=== PATIENT | male | born 1950 | race Caucasian/White ===

== ENCOUNTER 2016-09-16 07:21 | Inpatient (IN) ==
[2016-09-16] MEDS ORDERED: *HR* FentaNYL (PF) 100 MCG/2 ML VIAL IVP ONE ×3 (07:28→07:50)
--- NOTE | 2016-09-16 07:34 | Emergency Department Note ---
Disposition Clinical Impression: Ischemia of right lower extremity, Popliteal aneurysm, Pancreatic mass Disposition: Admitted As Inpatient Condition: Good Extremity Problem HPI - General Chief complaint: ED Extremity Problem,Nontraumatic Stated complaint: DVT right leg Time Seen by Provider: 09/16/16 07:28 Source: patient, EMS Limitations: no limitations Nursing Notes Reviewed: Yes Vital Signs Reviewed: Yes - History of Present Illness HPI Narrative: 65-year-old male history of hypertension, diabetes, hyperlipidemia who presents to the ER with a chief complaint of right lower extremity pain. Patient was transferred from outside facility due to ischemic limb. He reports that one week ago he was cutting wood and a limb fell onto the extremity at that time. There was no significant swelling at that time that he reports last night he started having worsening pain of the right foot. Patient denies a previous history of DVT. He denies a history of hypercoagulable states. He denies being on any anticoagulation. Patient denies chest pain or shortness of breath. No other complaints. Pt Subjective Complaint: extremity pain, cold extremity Onset (ago): hour(s) Consistency: constant Injury Location: right, lower extremity Pain Scale: 10 Quality: sharp Radiation: distal Improves with: nothing Worsens with: range of motion Associated symptoms: Denies: chest pain, shortness of breath, abdominal pain Context: trauma (hit in leg with tree limb one week ago) - Related Data Home Medications Medication Instructions Recorded Confirmed Amlodipine Besylate 10 mg PO DAILY 09/15/16 09/16/16 CloNIDine HCl [Clonidine HCl] 0.2 mg PO BID 09/15/16 09/16/16 FLUoxetine HCl [Fluoxetine HCl] 40 mg PO QAM 09/15/16 09/16/16 GlipiZIDE [Glipizide ER] 10 mg PO BID 09/15/16 09/16/16 Hydrochlorothiazide 50 mg PO DAILY 09/15/16 09/16/16 Labetalol HCl 300 mg PO BID 09/15/16 09/16/16 Lisinopril [Zestril] 20 mg PO DAILY 09/15/16 09/16/16 Metformin HCl [Fortamet] 1,000 mg PO BID 09/15/16 09/16/16 Potassium Chloride [Klor-Con 10] 10 meq PO DAILY 09/15/16 09/16/16 Prazosin HCl [Minipress] 5 mg PO QPM 09/15/16 09/16/16 Spironolactone [Aldactone] 25 mg PO DAILY 09/15/16 09/16/16 Previous Rx's Medication Instructions Recorded Meloxicam [Mobic] 7.5 mg PO DAILY #10 tablet 09/15/16 Tramadol HCl [Ultram] 50 mg PO QID PRN #14 tab 09/15/16 Allergies Allergy/AdvReac Type Severity Reaction Status Date / Time meperidine [From Demerol] Allergy Confusion Verified 09/16/16 07:30 promethazine [From Phenergan] Allergy Confusion Verified 09/16/16 07:30 All systems ED: reviewed and negative except as stated. Cardiovascular: Denies: chest pain Respiratory: Denies: dyspnea Gastrointestinal: Denies: abdominal pain, nausea, vomiting Musculoskeletal: Reports: other (RLE pain, RLE color change) Past Medical History - Past Medical History Attestation: Yes The following information was validated with the patient. Source: patient Medical history: Reports: diabetes, hypertension Surgical history: Reports: non-contributory Psychiatric history: Reports: no psych history - Social History Smoking Status: Current every day smoker Smokeless Tobacco Status: No Alcohol use: Reports: none Drug use: Reports: none Physical Exam - General Limitations: no limitations General appearance: alert, in no apparent distress - Head Head exam: atraumatic, normocephalic, normal inspection - Eye Eye exam: Present: normal appearance, EOMI - ENT ENT exam: normal exam - Neck Neck exam: Present: normal inspection - Chest Chest inspection: Present: normal inspection, symmetric chest wall rise - Respiratory Respiratory exam: Present: normal lung sounds bilaterally - Cardiovascular Cardiovascular exam: Present: regular rate, normal rhythm, normal heart sounds - Abdominal Exam Abdominal exam: Present: soft, Non-Tender. Absent: tenderness - Extremities Exam Extremities exam: Present: normal inspection, full ROM - Expanded Upper Extremity Exam Shoulder exam: Present: normal inspection, full ROM Arm exam: Present: normal inspection, full ROM Elbow exam: Present: normal inspection, full ROM Forearm/Wrist exam: Present: normal inspection, full ROM Hand exam: Present: normal inspection, full ROM - Expanded Lower Extremity Exam Hip/Pelvis exam: Present: normal inspection, full ROM Upper leg exam: Present: normal inspection, full ROM, other (Patient does have an intact femoral pulse.) Knee exam: Present: normal inspection, full ROM Lower leg exam: Present: normal inspection, full ROM Ankle exam: Present: normal inspection. Absent: full ROM (patient has diminished dorsiflexion and plantar flexion of the RLE) Foot/toe exam: Present: normal inspection, other (decreased sensation to the medial aspect of the right foot). Absent: full ROM, erythema Neurovascular/Tendon exam: Present: pulse deficit (I am unable to physically palpate a posterior tibial or dorsalis pedis pulse or evaluated with bedside Doppler.). Absent: motor deficit, sensory deficit - Neurological Exam Neurological exam: Present: alert - Psychiatric Psychiatric exam: Present: normal affect, normal mood - Skin Skin exam: Present: warm, dry, intact, other (The right lower extremity is pale from the knee distal.) Course Course Narrative: Patient seen and examined. Vital signs reviewed. He presents with a heparin drip currently infusing. He has a cold extremity from the right knee distal. He is able to minimally dorsiflex and plantarflex the right ankle with minimal toe involvement. I am unable to physically palpate a dorsalis pedis or posterior tibial pulse. Vascular surgery has been paged as well as cardio for an FRANKLIN. Bedside Doppler unable to obtain PT or DP pulses. - Reevaluation(s) Reevaluation #1: Discussed case with vascular surgery. They request ABIs and to be updated once that is back. Reevaluation #2: Received results of ABIs. They were able to get a dorsalis pedis however the posterior tibial was 0. Contacting vascular surgery for further management. Reevaluation #3: Vascular surgery wanting CTA of the aorta with runoff. Ordered as well as normal saline bolus. - Consultations Consultation #1: I discussed this case with the on-call vascular surgeon Dr. Sidhu. He requests to get ABIs and then a CTA of the aorta with runoff. I called him back and discussed the results which showed a pancreatic mass as well as a right popliteal aneurysm. He is going to take the patient to surgery once he has finished up causing his current case. Patient remains on heparin drip. Vital Signs Temperature 98.0 F 09/16/16 07:23 Pulse Rate 66 09/16/16 07:23 Respiratory Rate 18 09/16/16 07:23 Blood Pressure 187/94 09/16/16 07:23 O2 Sat by Pulse Oximetry 93 09/16/16 07:23 Temperature 98.0 F 09/16/16 07:23 Pulse Rate 75 09/16/16 13:27 Respiratory Rate 18 09/16/16 13:27 Blood Pressure 185/91 09/16/16 13:27 O2 Sat by Pulse Oximetry 96 09/16/16 13:27 Oxygen Delivery Oxygen Delivery Nasal Cannula Extremity Problem, Nontraumati - MDM Narrative Medical decision making narrative: 65-year-old male presents to the ER due to right lower extremity weakness, numbness and pain. Patient was found to have absent pulses here. FRANKLIN shows a posterior tibial deficit. Patient was placed on heparin drip prior to arrival. His CT of the aorta shows a right popliteal aneurysm with likely occlusion distal. There is also concern for a pancreatic mass which will require further investigation. Vascular surgery was consulted in the ER who will take the patient to the OR. Requests admission to the hospitalist service. Patient accepted for admission. - Lab Data Lab results reviewed: Yes I reviewed the patient's lab results. Result diagrams: 09/16/16 08:04 Lab Results 09/16/16 09/16/16 09/16/16 Range/Units 07:53 08:04 08:04 Sodium 132 L (136-145) mEq/L Potassium 4.4 (3.5-4.5) mEq/L Chloride 100 (98-109) mEq/L Carbon Dioxide 19 (19-29) mEq/L BUN 24 (8-26) mg/dL Creatinine 1.02 (0.72-1.25) mg/dL Est GFR ( Amer) > 60 (> 60) Est GFR (Non-Af Amer) > 60 (> 60) BUN/Creatinine Ratio 24 (6-26) Glucose 184 H (70-99) mg/dL POC Glucose 174 H (58-89) Calculated Osmolality 283 (280-300) Calcium 10.1 (8.6-10.8) mg/dL Blood Type A POSITIVE Antibody Screen NEGATIVE - Radiology Data Radiology results reviewed: Yes I reviewed the patient's radiology results. Aorta w/Runoff CTA 09/16/16 08:43 IMPRESSION: Pancreatic head mass measuring 3.5 x 3.5 cm in diameter suspicious for neoplasm. MRI the pancreas is recommended for further evaluation. 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 Suboptimal phase of contrast enhancement distal to the aneurysm and thrombosis or intraluminal thrombus in the distal popliteal artery or runoff arteries cannot be excluded. Conventional arteriography is recommended for further evaluation. D/ / Aime Acuña MD / Aime Acuña MD Interpreting Provider: Aime Acuña MD - EKG Data EKG attestation: Yes I reviewed and interpreted this EKG. EKG results narrative: EKG demonstrates normal sinus rhythm. Normal axis. DE interval 174 QRS duration 105 QTc 437 T wave flattening in lead 3 and aVL unchanged from previous. No ST elevations or depressions. No acute ischemic findings. No significant changes from previous EKG dated 06/26/13. S.Gm.Herlinda - Nessa Situation: Demographics, MOA Background: Presenting Complaint, Relevant PMH, Meds, & Allergies Assessment: Vital Signs, Course and respsone to treatment, Exam Concerns, Patient/Family Expectation, Pertinant Lab Results, Outstanding Labs Recommendation: Barrier(s) to disposition, Recommendation based on pending studies, treatments, or consults SLarisa Report Given to: Dr. Charla Szymanski Repor Time: 13:33 Attestation Statement - Attestation Attestation: I examined this patient and my medical decision-making was reviewed with the Resident Physician. I agree with the documented findings, disposition and treatment plan as described except to the extent set forth below. Ischemic limb d/t popliteal artery aneurysm and occlusion. Incidental finding of pancreatic mass. Hospitalist here to admit pt per vascular surgery request, initially requested that I order IV Hydralazine, after discussion we agreed to give him a dose of Clonidine since he takes this medication as an outpatient and missed this morning's dose. Pt has no symptoms of a hypertensive emergency.
[2016-09-16 08:26] LABS: BUN/Creatinine Ratio 24 (6-26); Blood Urea Nitrogen 24 mg/dL (8-26); Calcium 10.1 mg/dL (8.6-10.8); Carbon Dioxide 19 mEq/L (19-29); Chloride 100 mEq/L (98-109); Glucose 184 mg/dL (70-99); Osmolality,Calculated 283 (280-300); Potassium 4.4 mEq/L (3.5-4.5); Sodium 132 mEq/L (136-145); eGFR For African Americans > 60 (> 60); eGFR For Non-African Americans > 60 (> 60)
[2016-09-16] MEDS ORDERED: 0.9 % Sodium Chloride 500 ML IVC ONE (08:55)
[2016-09-16] MEDS ORDERED: *HR* HYDROmorphone 2 MG/ML SYRINGE IVP ONE (09:17)
[2016-09-16] MEDS ORDERED: *HR* HYDROmorphone (PF) 1 MG/ML SYRINGE IVP ONE ×3 (10:40→13:00)
--- NOTE | 2016-09-16 10:40 | Electrocardiograph Report ---
[place] [employer] Test Date: 2016-09-16 Pat Name: [facility] Department: [facility] Room: Gender: M Political Science Faculty Member: MSC : 1950 Requested By: Stanislaw Packer Order Number: [id number] Reading MD: Tano Peñaloza MD Measurements Intervals [place] Rate: 68 P: 80 TX: 174 QRS: 20 QRSD: 105 T: 42 QT: 419 QTc: 437 Interpretive Statements SINUS RHYTHM wnl Electronically Signed On 09-16-2016 10:38:26 EDT by Tano Peñaloza MD
[2016-09-16] MEDS ORDERED: *HR* Midazolam HCl 2 MG/2 ML VIAL ONE (13:01)
[2016-09-16] MEDS ORDERED: *HR* FentaNYL (PF) 100 MCG/2 ML VIAL ONE ×2 (13:01→15:14)
[2016-09-16] MEDS ORDERED: *HR* Remifentanil 2 MG VIAL IVP ONE ×2 (13:03→18:29)
[2016-09-16] MEDS ORDERED: *HR* Phenylephrine 10 MG/ML VIAL ONE (13:06)
[2016-09-16] MEDS ORDERED: Lidocaine -MPF 4% 5 ML AMPUL ONE (13:10)
[2016-09-16] MEDS ORDERED: Water for inj. (sterile) 10 ML IV ONE ×2 (13:10→13:16)
[2016-09-16] MEDS ORDERED: *HR* Heparin 5,000 UNIT/ML VIAL ONE (13:16)
[2016-09-16] MEDS ORDERED: EPHEDrine 50 MG/ML VIAL ONE (13:17)
[2016-09-16] MEDS ORDERED: Heparin 1,000 UNITS/500 mL NS 0 ML ONE (13:52)
[2016-09-16] MEDS ORDERED: cloNIDine HCl 0.1 MG TABLET PO ONE (14:02)
[2016-09-16] MEDS ORDERED: Heparin 1,000 UNITS/500 mL NS 1,000 ML ONE (14:03)
--- NOTE | 2016-09-16 14:22 | Vascular/Endovasc Consult Note ---
Date of Encounter: 09/16/16 Time of Encounter: 14:19 Assessment and Plan (1) Hypertension Current Visit: Yes Status: Chronic The patient sees Dr. Fishman for hypertension control. Qualifiers: Hypertension type: essential hypertension Qualified Code(s): I10 - Essential (primary) hypertension (2) Ischemia of right lower extremity Current Visit: Yes Status: Acute Limb threatening ischemia of right lower extremity with thrombosed right popliteal artery aneurysm and suspected thromboembolic events. 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 The patient and his family were informed of this grave diagnosis. He was explained that the prognosis is very poor and that limb loss is a distinct possibility. It is imperative to proceed with surgery as soon as possible. Patient is on a heparin drip which will be continued to the operating room. - History of Present Illness Consult date: 09/16/16 Consult reason: Right leg ischemia Chief complaint: Right leg pain History of present illness: Mr. Gonsalves is a 65 year old male Seen in the emergency room and a #1 for right lower extremity symptoms. Patient states that he had some type of a tree branch striking his right leg about a week ago he's had some discomfort since then. However, last evening he had a dramatic increase in the pain. He was seen at the [facility] and an x-ray was taken and the patient was sent home. The pain did not improve and he returned to the [facility] and then was referred to [facility]. He was transferred here early this morning. No palpable pulses were identified at the right ankle and the foot was cool to cold and discolored. No Doppler signals are identified on hand- held Doppler and vascular surgery was consulted. This eventually led to a CT angiogram which was positive for a 5 cm right popliteal artery aneurysm that appears thrombosed. Distal run off and the tibial vessels could not be identified. The patient has ectasia but no rosalina aneurysm in the left popliteal artery. There is no finding of an abdominal aortic aneurysm. Of note the patient has multiple risk factors including diabetes, hypertension that is poorly controlled, hyperlipidemia, and tobacco abuse. The patient denies any previous right lower extremity symptoms and denies any claudication in the recent past. He states his father of an aneurysm when he was 5 years of age but he does not know any other medical details and does not know where the aneurysm was located. Past Med Surg Social Fam HX - Past Medical History Medical history: diabetes, hypertension Psychiatric history: no psych history - Past Surgical History Surgical History: non-contributory - Social History Smoking Status: Current every day smoker Smokeless Tobacco Status: No Alcohol use: none Drug use: none Medications and Allergies Amlodipine Besylate 10 mg PO DAILY 09/15/16 [History] CloNIDine HCl [Clonidine HCl] 0.2 mg PO BID 09/15/16 [History] FLUoxetine HCl [Fluoxetine HCl] 40 mg PO QAM 09/15/16 [History] GlipiZIDE [Glipizide ER] 10 mg PO BID 09/15/16 [History] Hydrochlorothiazide 50 mg PO DAILY 09/15/16 [History] Labetalol HCl 300 mg PO BID 09/15/16 [History] Lisinopril [Zestril] 20 mg PO DAILY 09/15/16 [History] Meloxicam [Mobic] 7.5 mg PO DAILY #10 tablet 09/15/16 [Rx] Metformin HCl [Fortamet] 1,000 mg PO BID 09/15/16 [History] Potassium Chloride [Klor-Con 10] 10 meq PO DAILY 09/15/16 [History] Prazosin HCl [Minipress] 5 mg PO QPM 09/15/16 [History] Spironolactone [Aldactone] 25 mg PO DAILY 09/15/16 [History] Tramadol HCl [Ultram] 50 mg PO QID PRN #14 tab 09/15/16 [Rx] Allergies meperidine [From Demerol] Allergy (Verified 09/16/16 07:30) Confusion promethazine [From Phenergan] Allergy (Verified 09/16/16 07:30) Confusion All Systems Review: A 10-system review of systems was performed and is negative for pertinent findings except as documented above in the HPI. Exam General: Present: Conversant, No Apparent Distress HEENT: Present: Atraumatic, Normocephaly Neck: Absent: JVD, Midline deformity, Tracheal deviation Cardiac: Present: Reg Rate and Rhythm, Normal S1 and S2. Absent: No Murmur Lungs: Present: Normal Breath Sounds Neuro: Present: Alert and responsive, Cranial nerves grossly intact, Other (The patient has decreased sensation and decreased motion of the right toes and foot and ankle.) Abdomen: Present: Soft, Non-tender Vascular: Present: Pulse, absent (The patient has a hyperdynamic right popliteal pulse that is tender to manipulation. There is also mottling extends around the knee and the right calf and right foot are cyanotic with a waxy purplish discoloration. The right foot is cold to the touch. The left foot is warm and pink.), Pulse, normal (Left lower extremity is normal.) Skin: Present: No rashes noted on visualized skin Consult Discharge Plan - Plan Referrals: Yandy Wilson, BE[employer]ER [Primary Care Provider] -
[2016-09-16] MEDS ORDERED: Albuterol 2.5 MG/3 ML NEBULIZER ONE (14:44)
[2016-09-16] MEDS ORDERED: *HR* Heparin 5,000 UNIT/ML VIAL IVP PRN ×2 (14:46)
--- NOTE | 2016-09-16 14:46 | Anesthesia Evaluation PreOp ---
Date of Encounter: 09/16/16 Time of Encounter: 14:45 - Past History Planned Operation: Thrombectomy/ Repair Pop Aneurysm/Fem-Pop Cardiac History: HTN, Hyperlipidemia Pulmonary History: Smoker, COPD CABLE WIRER History: Denies Any Significant HX Other Medical History: Diabetes Type II Anesthesia History: No Prior Anesthetic Complications Alcohol Use: none Drug use: none Medications and Allergies Amlodipine Besylate 10 mg PO DAILY 09/15/16 [History] CloNIDine HCl [Clonidine HCl] 0.2 mg PO BID 09/15/16 [History] FLUoxetine HCl [Fluoxetine HCl] 40 mg PO QAM 09/15/16 [History] GlipiZIDE [Glipizide ER] 10 mg PO BID 09/15/16 [History] Hydrochlorothiazide 50 mg PO DAILY 09/15/16 [History] Labetalol HCl 300 mg PO BID 09/15/16 [History] Lisinopril [Zestril] 20 mg PO DAILY 09/15/16 [History] Meloxicam [Mobic] 7.5 mg PO DAILY #10 tablet 09/15/16 [Rx] Metformin HCl [Fortamet] 1,000 mg PO BID 09/15/16 [History] Potassium Chloride [Klor-Con 10] 10 meq PO DAILY 09/15/16 [History] Prazosin HCl [Minipress] 5 mg PO QPM 09/15/16 [History] Spironolactone [Aldactone] 25 mg PO DAILY 09/15/16 [History] Tramadol HCl [Ultram] 50 mg PO QID PRN #14 tab 09/15/16 [Rx] Allergies meperidine [From Demerol] Allergy (Verified 09/16/16 07:30) Confusion promethazine [From Phenergan] Allergy (Verified 09/16/16 07:30) Confusion - Meds/Allergy Pre-op Review Medications Reviewed: Yes Allergies Reviewed: Yes Beta Blockers on Current Med List: No Anesthesia Results - Labs 09/16/16 08:04 Laboratory Tests 09/16/16 09/16/16 09/16/16 06:23 06:23 07:53 Hgb 14.5 Hct 42.3 Plt Count 298 PT 11.6 INR 1.1 APTT 35.1 Sodium Potassium BUN Creatinine POC Glucose 174 H 09/16/16 08:04 Hgb Hct Plt Count PT INR APTT Sodium 132 L Potassium 4.4 BUN 24 Creatinine 1.02 POC Glucose - Imaging EKG: report reviewed (NSR) Anesthesia Exam O2 Sat Height 1.85 m Weight 115.666 kg O2 Sat by Pulse Oximetry 96 O2 Sat by Pulse Oximetry 96 O2 Sat by Pulse Oximetry 96 O2 Sat by Pulse Oximetry 96 O2 Sat by Pulse Oximetry 93 O2 Sat by Pulse Oximetry 95 O2 Sat by Pulse Oximetry 95 O2 Sat by Pulse Oximetry 93 Vital Signs Temp Pulse Resp BP Pulse Ox 98.0 F 66 18 187/94 93 09/16/16 07:23 09/16/16 07:23 09/16/16 07:23 09/16/16 07:23 09/16/16 07:23 Height: 6'1 Weight: 255 lbs NPO (# of Hours): MN Pain Scale: 0 - HEENT Pupil (Motor): Pupils equal, EOMI Mallampati: III Teeth: Edentulous Oral Opening: Greater than 3 - CABLE WIRER LOC: Oriented CABLE WIRER Motor: Normal RUE, Normal LUE, Normal RLE, Normal LLE, Normal Face CABLE WIRER Sensory: Normal: RUE, LUE, LLE, Face, Deficit: RLE (Ischemic) - Cardiac Rhythm: Regular Murmur: None JVD: No Carotid Bruit: No - Pulmonary Breath Sounds: bilateral Clear Respiratory Effort: Symmetrical Anesthesia Assess/Plan ASA Score: 3, E Modified Mendy Scale for Level of Consciousness: Cooperative, oriented, and tranquil Anesthetic Plan: General Monitoring Plan: Standard Monitors, A-Line Recovery Plan: PACU (Discussed GA, Ethel, agrees to proceed)
[2016-09-16] MEDS ORDERED: D5% in Water 1,000 ML IVC PRN ×2 (14:47→22:05)
[2016-09-16] MEDS ORDERED: Dextrose Gel 15 GM PO PRN ×4 (14:47→22:05)
[2016-09-16] MEDS ORDERED: *HR* Dextrose 50 % in Water (Syg) 50 ML SYRINGE IVP PRN ×2 (14:47→22:05)
[2016-09-16] MEDS ORDERED: Ondansetron 4 MG/2 ML VIAL IVP PRN (14:49)
[2016-09-16] MEDS ORDERED: *HR* HYDROmorphone (PF) 1 MG/ML SYRINGE IVP PRN ×2 (14:49→16:33)
[2016-09-16] MEDS ORDERED: Naloxone 0.4 MG/ML INJ IVP PRN ×3 (14:49→21:25)
[2016-09-16] MEDS ORDERED: *HR* HYDROcodone/Acet 5/325 mg TABLET PO PRN (14:49)
[2016-09-16] MEDS ORDERED: Acetaminophen 325 MG TABLET PO PRN (14:49)
[2016-09-16] MEDS ORDERED: Heparin 25,000 UNIT/500 ML D5W 25,000 UNIT/500 ML MLS IVC SCH ×2 (15:00→21:25)
[2016-09-16] MEDS: Albuterol 2.5 MG/3 ML NEBULIZER IH ONE ×2 (15:12→22:36)
--- NOTE | 2016-09-16 15:23 | Arterial Study Report ---
LE Arterial Physiologic Study Patient Name:Emilio Gonsalves Order Number:[id number] Procedure Date:09/16/2016 Date:1950ge:65 yrs Gender:Male Lt BP:200 / mmHg Rt.BP:200 / mmHgHeart Rate: Location:[facility] ED Room #: [employer] Music Teacher:Apolinar Blackwell RDCS Referring MD:Stanislaw Packer DO mining professionals:Yandy Wilson, WE[employer] MARKET[employer] INTERN Reading MD:Martin Sidhu MD , FACS Primary Indications:Right leg pain Risk Factors Yes/No Hypertension Yes Diabetes Yes Smoking Current Yes Impressions: 1) Right lower extremity waveform demonstrates moderately diminished hemodynamics. 2) Right Ankle Brachial Index demonstrates severely occlusive disease. 1) Left lower extremity waveform demonstrates mildly diminished hemodynamics. 2) Left Ankle Brachial Index demonstrates mildly occlusive disease. Recommendations: After imaging the patient returned to their room. Critical findings reported to ER by phone by Apolinar Blackwell RDCS. Findings LE Arterial Physiologic Exam: Segmental Pressures: Right: The right dorsalis pedis pressure is 151 mmHg with an index of 0.76. The posterior tibial pressure on the right was not obtained secondary to no audible Doppler signal. Left: The left dorsalis pedis pressure is 194 mmHg with an index of 0.97. The posterior tibial pressure on the left may be artificially elevated due to vessel calcification. FRANKLIN: Right: The Posterior Tibial FRANKLIN on the right was not obtained secondary to no audible Doppler signal. Left: The Posterior Tibial FRANKLIN on the left may be artificially elevated due to vessel calcification. PVR: Right: The PVR waveforms are moderately diminished in the right ankle. Left: The PVR waveforms are normal in the left ankle. Prior Study: No prior study available for comparison. High BP. No pulse found on right PT with a thumping pulse of the DP. So I did a quick image and noticed what appears to be a right POP A aneurysm with a distal occlusion. Segmental Pressures Side Location Pressure Index Result Right Posterior Tibial 0 Severely Diminished Right Dorsalis Pedis 151 0.76 Mildly Diminished Left Posterior Tibial noncompressible Left Dorsalis Pedis 194 0.97 Normal Ankle Brachial Index Right Systolic Diastolic FRANKLIN Brachial 200 0.76 Dorsalis Pedis 151 0.76 Posterior Tibial 151 0.76 Left Systolic Diastolic FRANKLIN Brachial 200 0.97 Dorsalis Pedis 194 0.97 Updated by Martin Sidhu MD, FACS on 09/16/2016 3:16:46 PM with Status of Final Martin Sidhu MD electronically signed on 09/16/2016 3:17:47 PM with status of Final
--- NOTE | 2016-09-16 15:24 | Internal Med History&Physical ---
<Gato Dunham T - Last Filed: 09/16/16 17:30> Date of Encounter: 09/16/16 Internal Medicine - H&P: HPI History of present illness: Mr. Gonsalves is a 65 year old male Internal Medicine - H&P: Meds Amlodipine Besylate 10 mg PO DAILY 09/15/16 [History] CloNIDine HCl [Clonidine HCl] 0.2 mg PO BID 09/15/16 [History] FLUoxetine HCl [Fluoxetine HCl] 40 mg PO QAM 09/15/16 [History] Hydrochlorothiazide 50 mg PO DAILY 09/15/16 [History] Labetalol HCl 300 mg PO BID 09/15/16 [History] Lisinopril [Zestril] 20 mg PO DAILY 09/15/16 [History] Prazosin HCl [Minipress] 5 mg PO HS 09/15/16 [History] GlipiZIDE [Glipizide] 10 mg PO BID 09/16/16 [History] Metformin HCl [Glucophage] 1,000 mg PO BID 09/16/16 [History] Spironolactone [Aldactone] 50 mg PO DAILY 09/16/16 [History] Allergies meperidine [From Demerol] Allergy (Verified 09/16/16 07:30) Confusion promethazine [From Phenergan] Allergy (Verified 09/16/16 07:30) Confusion All Systems PM: A 10-system review of systems was performed and is negative for pertinent findings except as documented above in the HPI. - Constitutional Vitals: Temp Pulse Resp BP Pulse Ox 98.0 F 75 18 183/90 96 09/16/16 07:23 09/16/16 13:27 09/16/16 14:36 09/16/16 14:36 09/16/16 13:27 Internal Med - H&P Results - Labs CBC & Chem 7: 09/16/16 08:04 - Attending Attestation I have independently interviewed and examined this patient. I agree with the resident/practitioner's documentation with exemptions as stated below. The plan of care has been discussed with the team, patient and family members. 65 Y/O M with PMH of hypertension and, hyperlipidemia, tobacco abuse with 40 pack years, diabetes mellitus, obesity. Patient presents with pain, swelling, numbness and tingling sensation, and discontinuation of his right lower extremity. Symptoms date back to a week ago patient attributes to trauma while cutting a log of wood. He states his FS have ranged from 130-140 and his BP has been well controlled recently. He also reports claudication of both lower extremities Physical exam is remarkable for anxious looking, middle aged man, not in painful distress, BP elevated to SBP >200, DBP >110. He is flushed on his torso. HS S1, S2, chest is clear, abdomen is obese but benign. Left lower extremity is pink, right lower extremity is cyanotic, cold and mottled with decreased sensation and absent dorsalis pedis and popliteal pulses. He also has multiple abrasions on his lower extremities bilaterally. Labs and Imaging reviewed: No fracture on Tibial X-ray, bibasilar atelectasis, pancreatic head mass, R popliteal artery aneurysm, cannot r/o distal thrombus. CBC with mild anemia, PLT WNL, Lactate 2.4, pseudo hyponatremia, hyperglycemia , coag panel WNL Assessment/Plan Acute limb ischemia in patient with multiple risk factors including tobacco abuse, HLD, DM, HTN, and suspected pancreatic CA. Continue anticoagulation with heparin drip, vascular surgery is on board for limb conserving surgery ARSALAN, start on ASA and Plavix, patient is high risk . Pancreatic mass: patient with family hx of pancreatic CA in mother, and tobacco abuse. Abdomen MRi after surgery, consult GI, may need oncology consult and may need lovenox for life upon discharge Uncontrolled HTN from ongoing pain and not started on home meds-restart home meds DM-Check A1C, FS q4-a6h, sliding scale insulin Tobacco abuse-NRT Rest of details as in residents documentation <Kathrin Osullivan - Last Filed: 09/17/16 01:08> Date of Encounter: 09/17/16 Time of Encounter: 15:22 Assessment and Plan (1) Ischemia of right lower extremity Current visit: Yes Status: Acute Patient presents with ischemic right LE. Unable to locate pulses with doppler, limb is cool and cyanotic. Patient transferred from [facility] on heparin drip. ABIs: posterior tibial pulse unable to be obtained via doppler. CTA aorta with runoff shows Right popliteal aneurysm with likely distal occlusion. Lactate elevated at 2.4 Vascular surgery was consulted by ED, evaluated patient and discussed need for urgent surgical intervention. Patient requests to be DNR/DNI. It was discussed that for surgical intervention he must be full code and that his code status can be addressed again in the morning and changed per his wishes. Plan: -Surgery per vascular -Patient started on ASA 325mg daily and plavix 75mg -Will continue hep gtt for now, patient may need indefinite treatment on lovenox as outpatient -Will repeat lactate, check lipids -Discussion of code status post op (2) Popliteal aneurysm Current visit: Yes Status: Acute Popliteal anurysm noted on the right. Patient also has renal cyst on left kidney. Patient's father of ruptured brain aneurysm. Patient is at high risk for possible aneurysmal rupture since he is now anticoagulated and hypertensive as we do not know if he has an aneurysm in his brain as well. Will need to control his BP and continue to monitor symptoms closely. (3) Hypertension Current visit: Yes Status: Chronic Patient sees Dr. Fishman for management of his hypertension. Patient has had fairly high BP readings since arrival to the ED.With potential for further aneurysms that have the possibility of rupturing with anticoagulation therapy in conjunction with high BP. Plan: -Continue home BP meds Qualifiers: Hypertension type: essential hypertension Qualified Code(s): I10 - Essential (primary) hypertension (4) Pancreatic mass Current visit: Yes Status: Acute 3.5x3.5cm mass found in head of pancreas incidentally on a CT aorta. Patient has smoked about 1 PPD for 40 years. Denies ETOH or elicit drug use. Patient is older male with DM, mother had pancreatic cancer. Mass must be evaluated further so treatment can be determined. If MRI abdomen comes back positive, will need to do further eval for potential mets vs primary distal tumor cancer eval. Patient may need hem/onc eval Plan: -Keep NPO after midnight except for meds. -MRI abdomen w/wo contrast in AM. Per radiology MRI has better view of pancreas when patient is NPO -CA-19, CEA, amylase, lipase, cmp, cbc, coags in AM (5) Diabetes mellitus, type 2 Current visit: Yes Status: Acute Plan: -low dose SS insulin -Get HgbA1C and reassess insulin needs, may need to add long acting insulin, but patient is only on metformin and glimipizide at home. Qualifiers: Diabetes mellitus complication status: with circulatory complication Diabetes mellitus complication detail: with other circulatory complications Diabetes mellitus correction insulin use: without correction use Qualified Code( s): E11.59 - Type 2 diabetes mellitus with other circulatory complications (6) Tobacco abuse Current visit: Yes Status: Chronic Patient has history of smoking 1PPD x40 years Plan: -smoking cessation counseling -nicotine patch prn (7) DVT prophylaxis Current visit: Yes Status: Acute Patient on heparin drip Internal Medicine - H&P: HPI Chief complaint: Right lower extremity pain Admitted From: Emergency Dept Plans for Post Hospital Care: Home History of present illness: Mr. Gonsalves is a 65 year old male with a PMH significant for DM, HTN who presented to the ED this morning complaining of right lower extremity pain. The patient was transferred from outside facility due to an ischemic limb. He reports that one week ago he was cutting wood and a limb fell onto his righ lower extremity. He notes an abrasion to the right keith and dorsal aspect of the foot, but denies any swelling. Last night he began having pain in the right foot ankle and was having difficulty dorsiflexing and inverting the foot. He presented to urgent care and was evaluated. He had an XR that was negative for acute fracture and a relatively benign exam according to documentation. The patient was diagnosed with an ankle sprain and discharged home. He woke up around 0500 today with worse pain in the right LE, along with progressively worsening weakness or the extremity with increasing coldness and color change to a blue color. He notes that he is having trouble standing and walking. He states that his leg feels cold, with a numbness and burning sensation on the plantar aspect of his right foot. He denies a previous history of DVT, PE, CVA, CA, recent long car rides or airplane travel, recently being sedentary for prolonged time periods and recent chemotherapy. He denies a history of hypercoagulable states. He denies being on any anticoagulation. He has had worsening weakness and insomnia lately. He has smoked 1PPD x40 years. He notes that he lost his about 4 months ago and is still grieving. He denies F/C, ESPINOSA, syncope, dizziness, palpitations, cp, sob, abdominal pain, n/v/d, constipation, dysuria or back pain. Past Med Surg Social Fam HX - Past Medical History Medical history: diabetes, hypertension Psychiatric history: no psych history - Past Surgical History Surgical History: non-contributory, cataract (right) - Social History Smoking Status: Current every day smoker Packs per day: 1PPD x40 years Smokeless Tobacco Status: No Alcohol use: none Drug use: none Activity Level: Independent ambulation Recent Out of Country Travel Within the Last 8 Weeks: No Exposure or Possible Exposure to Illness During Travel: No - Family History Father Race: Family Member Ethnicity: Non- Living Status: Age at : 58 Cause of : Brain anurysm Mother Race: Family Member Ethnicity: Non- Living Status: Age at : 63 Cause of : Pancreatic Cancer Hx Family Cancer: Yes (Pancreatic) Brother Race: Family Member Ethnicity: Non- Living Status: Still Living Hx Family Endocrine Disorder: Yes (DM) All Systems PM: A 10-system review of systems was performed and is negative for pertinent findings except as documented above in the HPI. - Constitutional Constitutional: fatigue, weakness (b/l legs), no anorexia, no chills, no weight loss - Cardiovascular Cardiovascular ROS IM: no chest pain, no dyspnea, no edema, no lightheadedness, no palpitations, no syncope - Respiratory Respiratory: no cough, no dyspnea, no wheezing - Gastrointestinal Gastrointestinal: no abdominal pain, no constipation, no diarrhea, no nausea, no vomiting - Genitourinary Genitourinary ROS male: no dysuria - Musculoskeletal Musculoskeletal ROS IM: limited range of motion, muscle weakness (b/l legs), tingling (right plantar surface) - Integumentary Integumentary IM: other (cold, blue limb), no erythema - Neurological Neurological ROS: abnormal gait, burning sensations, no confusion, no dizziness , no headache(s), no tremor(s) - Psychiatric Psychiatric: abnormal sleep pattern (insomnia), depression - Constitutional Vitals: Temp Pulse Resp BP Pulse Ox 98.0 F 75 18 183/90 96 09/16/16 07:23 09/16/16 13:27 09/16/16 14:36 09/16/16 14:36 09/16/16 13:27 General appearance: Present: cooperative, A&O X 3, no acute distress, obese, answers questions appropriately - Head Head exam: Present: atraumatic, normocephalic - Eye Eye exam: Present: EOMI, normal appearance, PERRL, conjuntiva pink, sclera anicteric Pupils: Present: PERRL - ENT ENT exam: Present: mucous membranes moist, normal external ear exam, TM's normal bilaterally Additional comments: upper dentures - Neck Neck exam general surgery: Present: supple, trachea midline. Absent: lymphadenopathy - Respiratory Respiratory exam: Present: CTAB. Absent: accessory muscle use, rales, respiratory distress, rhonchi, wheezes - Cardiovascular Cardiovascular exam: Present: RRR, +S1, +S2. Absent: diastolic murmur, gallop, rubs, systolic murmur - GI/Abdominal GI/Abdominal exam: Present: normal bowel sounds, soft, no peritoneal signs. Absent: distended, tenderness - Extremities Exam Extremities exam: Present: calf tenderness (right calf), cyanotic (right, below ankle), tenderness. Absent: full ROM, joint swelling, normal capillary refill, pedal edema, radial pulses palpable and symetrical - Expanded Lower Extremities Exam Lower Leg exam: Present: abrasion (right keith), tenderness Foot/Toe exam: Present: abrasion (dorsal aspect of right foot). Absent: full ROM Neuro vascular tendon exam: Present: abnormal cap refill, decreased fine/light touch (right), extremity cold to touch, motor deficit, pallor (right), pulse deficit (right), sensory deficit (right) - Back Exam Back exam: Present: normal inspection. Absent: CVA tenderness (L), CVA tenderness (R), paraspinal tenderness - Neurological Exam Neurological exam: Present: alert, motor sensory deficit (decreased motor/ sensory in right lower leg), oriented X3. Absent: facial droop, speech deficit - Expanded Neurological Exam Sensory exam: lower extremity light touch: Abnormal Right Neuro motor strength exam: LLE: 5, RLE: 0 - Psychiatric Psychiatric exam: Present: anxious - Skin Skin exam: Present: cyanosis (right leg below the knee), dry, excoriation. Absent: erythema Internal Med - H&P Results - Labs CBC & Chem 7: 09/16/16 08:04 - EKG Data -: EKG Interpreted by Myself EKG shows normal: sinus rhythm Rate: normal - EKG Data Prior EKG available for review: yes When compared to previous EKG: there is no significant change Interpretation IM: normal EKG - Diagnostic Studies Other Images Status: image reviewed by me Additional comments: Aorta w/Runoff CTA 09/16/16 08:43 IMPRESSION: Pancreatic head mass measuring 3.5 x 3.5 cm in diameter suspicious for neoplasm. MRI the pancreas is recommended for further evaluation. 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 Suboptimal phase of contrast enhancement distal to the aneurysm and thrombosis or intraluminal thrombus in the distal popliteal artery or runoff arteries cannot be excluded. Conventional arteriography is recommended for further evaluation. D/ / Aime Acuña MD / Aime Acuña MD Interpreting Provider: Aime Acuña MD
[2016-09-16] MEDS ORDERED: Insulin LISPRO 300 UNITS/3 ML VIAL SQ SCH ×2 (16:30→21:00)
[2016-09-16] MEDS ORDERED: Ondansetron 4 MG/2 ML VIAL IVP ONE (16:33)
[2016-09-16] MEDS ORDERED: Dexamethasone 4 MG/ML VIAL IVP ONE (16:33)
[2016-09-16] MEDS ORDERED: *HR* Labetalol 100 MG/20 ML MDV IVP PRN (16:33)
[2016-09-16] MEDS ORDERED: *HR* HYDROmorphone 2 MG/ML SYRINGE ONE (19:37)
--- NOTE | 2016-09-16 19:51 | Operative Note ---
Date of procedure: 09/16/16 Pre-op diagnosis: thrombosed right popliteal aneurysm/htn Post-op diagnosis: same Procedure: right tibioperoneal trunk endarterectomy right posterior tibial and peroneal artery catheter thrombectomy ligation of right popliteal aneurysm AK popliteal to tibioperoneal trunk bypass graft with 6 mm PTFE Distaflo Complications: none Anesthesia: BARBIA Surgeon: Martin Sidhu Estimated blood loss (cc): 300 Specimen: right tibioperoneal trunk endarterectomy Condition: stable Disposition: PACU Procedure in Detail: History Emilio Gonsalves is a 65-year-old white male who was seen as an emergency consultation in emergency room bay #1 earlier today. He had severe right lower extremity pain yesterday. He was seen in an outside ER and was eventually referred into [facility]. He is placed on intravenous heparin drip at the outside ER. He had no palpable pulses and a cool and discolored right foot. On evaluation here at [place] he was found to have a pulseless foot with minimal toe movement and markedly diminished ankle flexion and extension. He also had decreased sensation. The foot and lower calf were cold to the touch. Imaging studies demonstrated a thrombosed right popliteal artery aneurysm that measured 5 cm. There were no aneurysms identified in the abdominal aorta or in the left popliteal. Due to the limb threatening ischemia the patient was recommended to undergo surgery as soon as possible today and he now comes to the operating room in an attempt to try to save the right lower extremity. The patient is aware that he has a very poor prognosis because of the duration of time involved with his symptoms and with the nature of the disease with typical massive thromboembolic phenomenon associated with acute popliteal artery thrombosis. In addition on his CT scan a mass in the head of the pancreas was also identified which raises the specter of a paraneoplastic syndrome with hypercoagulation. Procedure After informed consent was obtained the patient was taken to the operating room as an emergency. General endotracheal anesthesia was established. The right lower extremity lower abdomen and bilateral groins were sterilely prepped and draped. A timeout protocol was observed. The operation was begun by making an incision on the distal medial aspect of the right thigh. Dissection was carried down to the tonto apache [id number] popliteal artery which was then controlled. This was a slightly larger than average diameter vessel with an excellent pulse. Palpation distally revealed the popliteal artery aneurysm. A second incision was then made in the [id number] popliteal area. This was extended distally and this incision was used to expose the [id number] popliteal and the tibial peroneal trunk and the tibial bifurcation. The anterior tibial artery was not identified. It was noted on the CT angiogram performed preoperatively that on the left lower extremity the anterior tibial artery had a very high takeoff in the mid popliteal artery and so this may also have been the case in this right lower extremity. The intravenous heparin drip that was started in the emergency room was continued before and during the entire length of the operation. Additional boluses of heparin were given to the patient during this procedure. A longitudinal arteriotomy was made on the tibial peroneal trunk area and distal below the knee popliteal. Upon opening the vessel there was no blood present. The patient had thick and chronic atherosclerotic disease involving the entire length of the vessel. Subacute to chronic thrombus was also identified. Because of these findings and endarterectomy was necessary. The endarterectomy was then performed of the tibial peroneal trunk and the orifice ease of the posterior tibial and peroneal arteries. At this time attempts were then made to establish some distal runoff. 2 Iraqi and 3 Iraqi Raj catheters were then used and selectively placed into the posterior tibial and peroneal arteries. Fresh thrombus was removed from both of these arteries. However despite the removal of this fresh thrombus and being able to pass the catheter a distance of about [address] the catheter at the level of the ankle no retrograde bleeding was achieved. The next step and the procedure was to ligate the aneurysm. 2 2-0 silk ligatures were then tied on the popliteal artery above the aneurysm and below the aneurysm. With this done a anatomic tunnel was created from the above-knee popliteal to the below-knee popliteal artery. A 6 mm PTFE Distaflo graft was selected and was passed through this tunnel. The distal anastomosis was constructed first due to the fluted end of the graft. This was performed to the endarterectomized tibial peroneal trunk area. The vessel at this location needed to be divided in order to satisfactorily fit the endarterectomized vessel to the fluted end of the Distaflo graft. This functional end to end anastomosis was performed using 6-0 Prolene suture. After this was done the proximal anastomosis was performed at the [id number] popliteal artery. This vessel was a strong pulsatile vessel with a moderately thickened wall. Upon opening the vessel there were no findings of acute or chronic thrombus. There were clearly findings of diffuse atherosclerosis with a spongy type plaque. The proximal anastomosis was performed end to side with 6-0 Prolene. After appropriate backbleeding and flushing the graft was opened and pulsatile flow was then established into the tibial system. Hemostasis was achieved at both anastomotic areas. Using a Doppler flow was confirmed into the posterior tibial and peroneal arteries at the [id number] popliteal incision. However auscultation with a Doppler at the ankle level did not reveal Doppler signals. Due to the severity of the patient's ischemia and length of time of disease and also the fact that the atherosclerosis and chronic vessel wall changes were much more chronic than originally anticipated no further attempts at revascularization distally were performed. The 2 incisions were then irrigated and hemostasis achieved. The wounds were then closed in layers using absorbable suture. Miller were used to close the skin edge. Dry sterile dressings were applied. The Vito intraoperative complications. The patient tolerated the procedure well. The tibial peroneal trunk endarterectomy specimen was submitted to pathology for analysis. The patient was extubated in the operating room. He was taken to the recovery room in moderately hypertensive but hemodynamically otherwise stable condition. No blood transfusions were administered during this operation.
[2016-09-16] MEDS ORDERED: CloNIDine Patch 0.3 MG PATCH (WEEKLY) TD SCH (20:30)
--- NOTE | 2016-09-16 21:06 | Anesthesia Evaluation Post Op ---
Date of Encounter: 09/16/16 Time of Encounter: 21:06 - Vital Signs Vital Signs: Last Vital Signs Temp 99.3 F 09/16/16 20:32 Pulse 73 09/16/16 20:52 Resp 16 09/16/16 20:52 BP 170/80 09/16/16 20:52 Pulse Ox 95 09/16/16 20:52 - Lungs Lungs: Clear Ascult./Percussion - Airway Airway: Non-obstructed - Cardiovascular Regular Rate - Mental Status Mental Status: Alert & Oriented, Answers Appropriately - Pain Pain Scale: 3 - Nausea Vomiting Nausea Vomiting: Not Present - Hydration Hydration: Ice chips, Plascencia catheter - Discharge PostOp Status: Transfer Patient to floor
[2016-09-16] MEDS ORDERED: 0.9 % Sodium Chloride 1,000 ML IVC SCH (21:25)
[2016-09-16] MEDS ORDERED: *HR* GlipiZIDE XL (24 HR) 10 MG TABLET PO SCH (21:25)
[2016-09-16] MEDS: cloNIDine HCl 0.1 MG TABLET PO SCH (22:15)
[2016-09-16 22:30] LABS: Activated Partial Thrombo Time 156.6 Seconds (26.0-36.0)
[2016-09-16 22:43] LABS: Heparin anti-factor XA UFH 0.64 IU/mL (0.30-0.70)
[2016-09-16] MEDS: ceFAZolin 2,000 MG in D5% in Water 100 ML IVPB SCH (23:19)
[2016-09-17] MEDS: Insulin LISPRO 300 UNITS/3 ML VIAL SQ SCH ×4 (00:30→23:13)
[2016-09-17] MEDS ORDERED: Nicotine 21 MG PATCH.TD24 TD PRN (01:08)
[2016-09-17] MEDS: traMADol 50 MG TABLET PO PRN ×2 (01:13→05:03)
[2016-09-17] MEDS ORDERED: *HR* HYDROmorphone (PF) 1 MG/ML SYRINGE IVP PRN ×3 (02:06→18:22)
[2016-09-17] MEDS ORDERED: *HR* HYDROmorphone (PF) 1 MG/ML SYRINGE IVP ONE (03:15)
[2016-09-17 05:46] LABS: INR 1.1; Prothrombin Time 12.1 Seconds (9.4-12.1)
[2016-09-17 05:51] LABS: Hemoglobin A1C 6.8 %
[2016-09-17 05:57] LABS: Alanine Aminotransferase 38 Units/L (0-55); Albumin 3.7 g/dL (3.5-5.0); Albumin/Globulin Ratio 1.2 (1.1-2.2); Alkaline Phosphatase 50 Units/L (38-126); Amylase 58 Units/L (25-125); Aspartate Amino Transferase 74 Units/L (5-34); BUN/Creatinine Ratio 21 (6-26); Bilirubin,Total 0.6 mg/dL (0.2-1.2); Blood Urea Nitrogen 20 mg/dL (8-26); Calcium 8.7 mg/dL (8.6-10.8); Carbon Dioxide 24 mEq/L (19-29); Chloride 98 mEq/L (98-109); Chol/HDL Ratio 5.1 (0-4.9); Cholesterol 168 mg/dL (< 200); Glucose 127 mg/dL (70-99); HDL Cholesterol 33 mg/dL (40-59); LDL Cholesterol,Calculated 98 mg/dL (0-99); Lipase 59 Units/L (8-78); Osmolality,Calculated 274 (280-300); Potassium 4.1 mEq/L (3.5-4.5); Sodium 130 mEq/L (136-145); Total Protein 6.7 g/dL (6.0-8.3); Triglycerides 184 mg/dL (< 150); eGFR For African Americans > 60 (> 60); eGFR For Non-African Americans > 60 (> 60)
[2016-09-17 05:58] LABS: Basophils % 0.1 %; Hematocrit 36.9 % (37.5-50.1); Hemoglobin 12.6 g/dL (12.9-16.9); Immature Granulocytes % 0.5 % (0-4); Lymphocytes # 2.1 K/mcL (0.6-4.6); Lymphocytes % 12.5 %; Mean Corpuscular HGB Conc 34.1 g/dL (31.6-35.5); Mean Corpuscular Hemoglobin 31.3 pg (28.0-33.3); Mean Corpuscular Volume 91.6 fL (83.0-100.0); Mean Platelet Volume 9.2 fL (9.4-12.4); Monocytes # 0.9 K/mcL (0.0-1.3); Monocytes % 5.6 %; Neutrophils # 13.6 K/mcL (1.6-8.9); Platelet Count 311 K/mcL (140-400); Red Blood Count 4.03 M/mcL (4.19-5.50); Red Cell Distribution Width 13.4 % (11.5-14.5); Segmented Neutrophils % 81.3 %
[2016-09-17] MEDS ORDERED: *HR* Heparin 5,000 UNIT/ML VIAL IVP PRN ×2 (06:36)
[2016-09-17] MEDS: ceFAZolin 2,000 MG in D5% in Water 100 ML IVPB SCH ×2 (08:18→16:03)
[2016-09-17] MEDS: cloNIDine HCl 0.1 MG TABLET PO SCH ×2 (08:18→23:11)
[2016-09-17] MEDS ORDERED: Spironolactone 25 MG TABLET PO SCH (09:00)
[2016-09-17] MEDS ORDERED: Aspirin 325 MG TABLET PO SCH ×2 (09:00)
[2016-09-17] MEDS ORDERED: amLODIPine 5 MG TABLET PO SCH (09:00)
[2016-09-17] MEDS ORDERED: Lisinopril 20 MG TABLET PO SCH (09:00)
[2016-09-17] MEDS ORDERED: FLUoxetine 20 MG CAPSULE PO SCH (09:00)
[2016-09-17] MEDS ORDERED: hydroCHLOROthiazide 25 MG TABLET PO SCH (09:00)
[2016-09-17] MEDS: *HR* HYDROmorphone (PF) 1 MG/ML SYRINGE IVP PRN ×6 (09:24→16:06)
[2016-09-17] MEDS: *HR* OxyCODONE/APAP 10/325 TABLET PO PRN ×2 (10:57→14:46)
[2016-09-17] MEDS ORDERED: Ketorolac 30 MG/ML VIAL IVP PRN (11:05)
[2016-09-17] MEDS ORDERED: Pantoprazole 40 MG VIAL IVP SCH (11:15)
--- NOTE | 2016-09-17 14:41 | Anesthesia Evaluation PreOp ---
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 HX Other Medical History: Diabetes Type II (maintained on Glipizide, Metformin) Anesthesia History: No Prior Anesthetic Complications, Past Anesthesia Alcohol Use: none Drug use: none Medications and Allergies Amlodipine Besylate 10 mg PO DAILY 09/15/16 [History] CloNIDine HCl [Clonidine HCl] 0.2 mg PO BID 09/15/16 [History] FLUoxetine HCl [Fluoxetine HCl] 40 mg PO QAM 09/15/16 [History] Hydrochlorothiazide 50 mg PO DAILY 09/15/16 [History] Labetalol HCl 300 mg PO BID 09/15/16 [History] Lisinopril [Zestril] 20 mg PO DAILY 09/15/16 [History] Prazosin HCl [Minipress] 5 mg PO HS 09/15/16 [History] GlipiZIDE [Glipizide] 10 mg PO BID 09/16/16 [History] Metformin HCl [Glucophage] 1,000 mg PO BID 09/16/16 [History] Spironolactone [Aldactone] 50 mg PO DAILY 09/16/16 [History] Allergies meperidine [From Demerol] Allergy (Verified 09/16/16 07:30) Confusion promethazine [From Phenergan] Allergy (Verified 09/16/16 07:30) Confusion - Meds/Allergy Pre-op Review Medications Reviewed: Yes Allergies Reviewed: Yes Beta Blockers on Current Med List: Yes Anesthesia Results - Labs 09/17/16 05:30 09/17/16 05:30 Laboratory Tests 09/17/16 09/17/16 09/17/16 05:30 05:30 05:30 PT 12.1 INR 1.1 APTT 56.4 H D POC Glucose Est Mean Plasma Glucose 148 Hemoglobin A1c 6.8 H Triglycerides LDL Cholesterol, Calc VLDL Cholesterol, Calc HDL Cholesterol Cholesterol/HDL Ratio 09/17/16 09/17/16 05:30 06:01 PT INR APTT POC Glucose 125 H Est Mean Plasma Glucose Hemoglobin A1c Triglycerides 184 H LDL Cholesterol, Calc 98 VLDL Cholesterol, Calc 37 H HDL Cholesterol 33 L Cholesterol/HDL Ratio 5.1 H Laboratory Results Impressions Aorta w/Runoff CTA 09/16/16 08:43 IMPRESSION: Pancreatic head mass measuring 3.5 x 3.5 cm in diameter suspicious for neoplasm. MRI the pancreas is recommended for further evaluation. 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 Suboptimal phase of contrast enhancement distal to the aneurysm and thrombosis or intraluminal thrombus in the distal popliteal artery or runoff arteries cannot be excluded. Conventional arteriography is recommended for further evaluation. D/ / Aime Acuña MD / Aime Acuña MD Interpreting Provider: Aime Acuña MD - Imaging EKG: image reviewed (68bpm SR) Anesthesia Exam Vital Signs Temp Pulse Resp BP Pulse Ox 09/17/16 14:00 71 16 146/81 95 09/17/16 12:00 70 16 158/81 94 09/17/16 10:46 98.1 F 74 20 164/79 93 09/17/16 08:56 97.7 F 73 18 156/81 96 09/17/16 08:30 80 09/17/16 06:58 97.7 F 82 16 164/69 96 09/17/16 04:00 74 171/78 09/17/16 03:54 98.2 F 80 20 146/105 95 09/17/16 03:00 74 163/85 09/17/16 02:00 71 162/75 09/17/16 01:00 73 175/79 09/17/16 00:00 77 186/79 09/16/16 23:25 97.5 F L 71 22 181/79 95 09/16/16 22:45 73 172/80 09/16/16 22:15 72 180/81 09/16/16 22:00 71 170/84 09/16/16 21:45 71 171/89 09/16/16 21:30 73 176/84 09/16/16 21:02 99.3 F 71 16 170/87 96 09/16/16 20:52 73 16 170/80 95 09/16/16 20:42 73 16 164/82 95 09/16/16 20:32 99.3 F 75 16 167/82 94 09/16/16 20:22 77 16 169/83 94 09/16/16 20:12 76 16 163/79 90 09/16/16 20:02 98.2 F 74 16 156/75 92 Intake and Output 09/16/16 09/17/16 09/17/16 23:59 07:59 15:59 Intake Total 100 / 100 100 / 100 100 / 100 Output Total 975 / 975 500 / 500 400 / 400 Balance -875 / -875 -400 / -400 -300 / -300 Intake: IV Fluids 100 / 100 100 / 100 100 / 100 Heparin 25,000 UNIT/500 0 / 0 100 / 100 ML D5W 25,000 unit In 500 ml @ 8.65 UNIT/KG/HR 20. 01 mls/hr IVC .Q24H [facility]ADIM Rx#:[id number] Ancef 2,000 MG In 100 / 100 100 / 100 Dextrose 5% 100 ML @ 200 mls/hr IVPB Q8HR [facility]IM Rx#: [id number] Oral 0 / 0 Output: Estimated Blood Loss 300 / 300 Urine Amount (Catheter) 225 / 225 Catheter 450 / 450 500 / 500 400 / 400 Other: Meal NPO Weight 116.2 kg Blood Glucose* 184 125 129 Patient Weight 09/17/16 23:59 Weight 116.2 kg Height: 6'1" Weight: 256# BMI = 34 NPO (# of Hours): MNoc - HEENT Pupil (Motor): Pupils equal, EOMI Mallampati: III Teeth: Edentulous Oral Opening: Greater than 3 - DECONTAMINATION WORKER LOC: Oriented DECONTAMINATION WORKER Motor: Normal RUE, Normal LUE, Normal LLE, Normal Face, Deficit RLE ( ischemic) DECONTAMINATION WORKER Sensory: Normal: RUE, LUE, LLE, Face, Deficit: RLE - Cardiac Rhythm: Regular Murmur: None JVD: No - Pulmonary Breath Sounds: bilateral Clear Respiratory Effort: Symmetrical Anesthesia Assess/Plan ASA Score: 3 (Resistant HTN, PVD, Smoker, COPD, DM, Chol) Anes Supervising Prov Stmt: Pt seen/evaluated, R&B discussed, questions answered and consent obtained. Sabina Luna MD
[2016-09-17] MEDS ORDERED: *HR* Propofol 200 MG/20 ML VIAL IVP ONE (15:56)
[2016-09-17] MEDS ORDERED: *HR* FentaNYL (PF) 100 MCG/2 ML VIAL ONE (15:56)
[2016-09-17] MEDS ORDERED: Lidocaine -MPF 2% 2 ML VIAL ONE (15:57)
--- NOTE | 2016-09-17 16:10 | Internal Med Progress Note ---
Date of Encounter: 09/17/16 Time of Encounter: 10:30 - Assessment and plan (1) Ischemia of right lower extremity Current Visit: Yes Status: Acute Assessment and plan: Patient scheduled for right AKA later today continue aggressive pain control Surgery on board, consultation appreciated (2) Pancreatic mass Current Visit: Yes Status: Acute Assessment and plan: Will need further work up after surgery (3) Hypertension Current Visit: Yes Status: Chronic Assessment and plan: BP within acceptable range has had intermittent episodes of hypertension secondary to the pain Will continue home medications and closely monitor BP Qualifiers: Hypertension type: essential hypertension Qualified Code(s): I10 - Essential (primary) hypertension (4) Diabetes mellitus, type 2 Current Visit: Yes Status: Acute Assessment and plan: BG within acceptable range will continue SS insulin algorithm continue to monitor FS and BG Qualifiers: Diabetes mellitus complication status: with circulatory complication Diabetes mellitus complication detail: with other circulatory complications Diabetes mellitus intermediate project manager insulin use: without jail use Qualified Code( s): E11.59 - Type 2 diabetes mellitus with other circulatory complications (5) DVT prophylaxis Current Visit: Yes Status: Acute Assessment and plan: Currently on Heparin gtt (6) Tobacco abuse Current Visit: Yes Status: Chronic Assessment and plan: smoking cessation counseling provided nicotine supplementation provided - Subjective Interval history: Patient seen and examined with family present at bedside. Patient admitted for right limb ischemia and underwent right tibioperoneal trunk endarterectomy right posterior tibial and peroneal artery catheter thrombectomy, ligation of right popliteal aneurysm, AK popliteal to tibioperoneal trunk bypass graft with 6 mm PTFE without adequate relief and is scheduled for Rt AKA later today. He continues to have severe limb pain requiring high doses of pain medications. Receiving Dilaudid 1mg IV q1h, Toradol 30mg iV q6h, Oxycodone 10/325 PO q6h. patient's daughter present at bed side has been extremely hostile and agreessive towards to the nursing and medical staff, demanding therapy and being unhappy with the care patient has been receiving. All of her questions have been thoroughly answered. - Constitutional Vitals: Temp Pulse Resp BP Pulse Ox 97.6 F 72 16 153/79 92 09/17/16 15:18 09/17/16 15:18 09/17/16 15:18 09/17/16 15:18 09/17/16 15:18 General appearance: Present: cooperative, mild distress (painful distress), A&O X 3, obese, answers questions appropriately - Respiratory Respiratory exam: Present: CTAB. Absent: accessory muscle use, rales, rhonchi, wheezes - Cardiovascular Cardiovascular exam: Present: RRR, +S1, +S2. Absent: diastolic murmur, gallop, rubs, systolic murmur - GI/Abdominal GI/Abdominal exam: Present: normal bowel sounds, soft, no peritoneal signs. Absent: distended, tenderness - Extremities Exam Extremities exam: Present: warm, radial pulses palpable and symetrical (RLE edema, cold, absent distal pulses) - Neurological Exam Neurological exam: Present: alert, oriented X3 - Psychiatric Psychiatric exam: Present: normal affect, normal mood Internal Medicine: Result - Labs CBC & Chem 7: 09/17/16 05:30 09/17/16 05:30 Labs: Short CBC 09/17/16 Range/Units 05:30 WBC 16.7 H (4.3-11.1) K/mcL Hgb 12.6 L D (12.9-16.9) g/dL Hct 36.9 L (37.5-50.1) % Plt Count 311 (140-400) K/mcL Neutrophils # 13.6 H (1.6-8.9) K/mcL BMP 09/17/16 05:30 Sodium 130 L Potassium 4.1 Chloride 98 Carbon Dioxide 24 BUN 20 Creatinine 0.96 Glucose 127 H Calcium 8.7 Liver Function 09/17/16 Range/Units 05:30 Total Bilirubin 0.6 (0.2-1.2) mg/dL AST 74 H (5-34) Units/L ALT 38 (0-55) Units/L Alkaline Phosphatase 50 (38-126) Units/L Albumin 3.7 (3.5-5.0) g/dL - ABG Interpretation ABG results: PT/INR, D-dimer PT 12.1 Seconds (9.4-12.1) 09/17/16 05:30 - VTE Documentation of Mechanical Device: Intermittent pneumatic compression device Consult Discharge Plan - Plan Referrals: Yandy Wilson CNP [Primary Care Provider] - 09/26/16 1:15 pm Martin Sidhu MD [Partnered Physician] - 10/08/16 11:45 am
--- NOTE | 2016-09-17 17:26 | Vascular/[facility] Progress Note ---
Date of Encounter: 09/17/16 Time of Encounter: 08:30 - Assessment and plan (1) Hypertension Current Visit: Yes Status: Chronic The patient sees Dr. Fishman for hypertension control. Qualifiers: Hypertension type: essential hypertension Qualified Code(s): I10 - Essential (primary) hypertension (2) Ischemia of right lower extremity Current Visit: Yes Status: Acute Limb threatening ischemia of right lower extremity with thrombosed right popliteal artery aneurysm and suspected thromboembolic events. 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 The patient and his family were informed of this grave diagnosis. He was explained that the prognosis is very poor and that limb loss is a distinct possibility. It is imperative to proceed with surgery as soon as possible. Patient is on a heparin drip which will be continued to the operating room. no improvement overnight non viable limb recommend right AKA - Subjective Interval history: persistent significant right le pain, difficult to control with narcotics uncomfortable night Vital Signs, Last 4 Hours Temp Pulse Resp BP Pulse Ox 09/17/16 16:00 98.5 F 81 16 159/88 94 09/17/16 15:18 97.6 F 72 16 153/79 92 09/17/16 14:00 94 16 146/81 95 09/17/16 13:30 152/84 - Physical Examination Vascular: Present: Capillary refill delayed, Pulse, absent, Cyanosis (right foot and calf), Color/Temperature (fixed mottling of right foot), Other (no doppler signals at right ankle) Abdomen: Present: Other - VTE Documentation of Mechanical Device: Intermittent pneumatic compression device Results 09/17/16 05:30 09/17/16 05:30 Lab Results, Last 24 hours 09/16/16 09/17/16 09/17/16 21:40 05:30 05:30 WBC 16.7 H Hgb 12.6 L D Hct 36.9 L Plt Count 311 INR APTT 156.6 H* D 56.4 H D Sodium Potassium Chloride Carbon Dioxide BUN Creatinine Glucose Calcium Total Bilirubin AST ALT Alkaline Phosphatase Amylase Lipase 09/17/16 09/17/16 09/17/16 05:30 05:30 15:15 WBC Hgb Hct Plt Count INR 1.1 APTT 76.7 H Sodium 130 L Potassium 4.1 Chloride 98 Carbon Dioxide 24 BUN 20 Creatinine 0.96 Glucose 127 H Calcium 8.7 Total Bilirubin 0.6 AST 74 H ALT 38 Alkaline Phosphatase 50 Amylase 58 Lipase 59 Consult Discharge Plan - Plan Referrals: Yandy Wilson CNP [Primary Care Provider] - 09/26/16 1:15 pm Martin Sidhu MD [Partnered Physician] - 10/08/16 11:45 am
--- NOTE | 2016-09-17 17:29 | Operative Note ---
Date of procedure: 09/17/16 Pre-op diagnosis: nonviable right lower extremity/thrombosed right popliteal artery aneurysm Post-op diagnosis: same Implants: none Complications: none Anesthesia: GETA Surgeon: Martin Sidhu Estimated blood loss (cc): 200 Specimen: right AKA Condition: stable Disposition: PACU Procedure in Detail: History Emilio Gonsalves is a 65-year-old white male who had undergone emergency surgery yesterday for a thrombosed right popliteal artery aneurysm with a profoundly ischemic right lower extremity. On follow-up exam the patient had no response to the reconstruction and thrombectomy. His limb was clearly nonviable and he had significant pain. Therefore he was recommended to undergo amputation and he now comes for this procedure. Procedure After informed consent was obtained the patient was taken to the operating room. General endotracheal anesthesia was established. The right lower extremity was sterilely prepped and draped. A timeout protocol was observed. A fishmouth type incision was then made on the distal thigh. The incision was made so that the previous surgical incision for the popliteal artery exploration above the knee was included in the resection specimen. The dissection was carried circumferentially down to and through the fascia. The muscle was then identified and divided. The popliteal artery was patent and pulsatile. This was doubly ligated and divided. The popliteal vein was doubly ligated and divided. Dissection was continued so that all 3 compartments of the thigh were then opened and the muscle divided. It should be noted that the muscle all appeared viable and there were pulsatile vessels in the muscle. The sciatic nerve was identified posteriorly. This was clamped divided and then ligated and allowed to retract into the soft tissue. The periosteum on the femur was then raised. The femur was divided with a sagittal saw. The edges of the femur was then rasped smooth. The wound was then copiously irrigated with antibiotic containing solution. Hemostasis was achieved. The wound was then closed in layers using interrupted 2-0 Vicryl suture. [place] were used for the skin. A bulky dry dressing was then applied to the [id number] amputation. The patient was extubated from anesthesia. He was taken to the recovery room in stable condition. Estimated blood loss was 200 mL. All skin edges and flaps appeared viable at the conclusion of the operation.
[2016-09-17] MEDS ORDERED: *HR* Rocuronium Bromide 50 MG/5 ML VIAL ONE (17:38)
[2016-09-17] MEDS ORDERED: EPHEDrine 50 MG/ML VIAL ONE (17:44)
[2016-09-17] MEDS ORDERED: *HR* Labetalol 100 MG/20 ML MDV IVP PRN (18:22)
[2016-09-17] MEDS ORDERED: Ondansetron 4 MG/2 ML VIAL IVP ONE (18:22)
[2016-09-17] MEDS ORDERED: *HR* Morphine 2 MG/ML SYRINGE IVP PRN (18:22)
[2016-09-17] MEDS ORDERED: Albuterol 2.5 MG/3 ML NEBULIZER IH ONE (18:22)
[2016-09-17] MEDS ORDERED: Dexamethasone 4 MG/ML VIAL ONE (18:51)
[2016-09-17] MEDS ORDERED: Ondansetron 4 MG/2 ML VIAL ONE (18:51)
[2016-09-17] MEDS ORDERED: *HR* HYDROmorphone 2 MG/ML SYRINGE ONE (19:19)
--- NOTE | 2016-09-17 20:17 | Anesthesia Evaluation Post Op ---
Date of Encounter: 09/17/16 Time of Encounter: :17 - Vital Signs Vital Signs: Last Vital Signs Temp 100.5 F H 09/17/16 20:09 Pulse 77 09/17/16 20:09 Resp 20 09/17/16 20:09 BP 167/72 09/17/16 20:09 Pulse Ox 92 09/17/16 20:09 - Lungs Lungs: Clear Ascult./Percussion - Airway Airway: Non-obstructed - Cardiovascular Regular Rate - Mental Status Mental Status: Alert & Oriented, Answers Appropriately - Nausea Vomiting Nausea Vomiting: Not Present - Hydration Hydration: Ice chips, Plascencia catheter - Discharge PostOp Status: Transfer Patient to floor
[2016-09-17] MEDS ORDERED: *HR* HYDROmorphone 20 MG/20 ML PCA IVC PRN (21:05)
[2016-09-17] MEDS ORDERED: Neostigmine Methylsulfate 3 MG/3 ML SYRINGE ONE (21:51)
[2016-09-17] MEDS: *HR* HYDROmorphone 2 MG/ML SYRINGE IVP PRN (23:36)
[2016-09-18] MEDS: *HR* HYDROmorphone 2 MG/ML SYRINGE IVP PRN ×2 (06:09→12:07)
[2016-09-18] MEDS ORDERED: Dextrose Gel 15 GM PO PRN ×2 (07:43)
[2016-09-18] MEDS ORDERED: *HR* HYDROmorphone 20 MG/20 ML PCA IVC PRN ×2 (07:43)
[2016-09-18] MEDS ORDERED: 0.9 % Sodium Chloride 1,000 ML IVC SCH (07:43)
[2016-09-18] MEDS ORDERED: Naloxone 0.4 MG/ML INJ IVP PRN (07:43)
[2016-09-18] MEDS ORDERED: D5% in Water 1,000 ML IVC PRN (07:43)
[2016-09-18] MEDS ORDERED: *HR* Dextrose 50 % in Water (Syg) 50 ML SYRINGE IVP PRN (07:43)
[2016-09-18] MEDS: hydroCHLOROthiazide 25 MG TABLET PO SCH (09:31)
[2016-09-18] MEDS: cloNIDine HCl 0.1 MG TABLET PO SCH ×2 (09:32→21:35)
[2016-09-18] MEDS: Aspirin 325 MG TABLET PO SCH (09:32)
[2016-09-18] MEDS: Lisinopril 20 MG TABLET PO SCH (09:32)
[2016-09-18] MEDS: FLUoxetine 20 MG CAPSULE PO SCH (09:32)
[2016-09-18] MEDS: amLODIPine 5 MG TABLET PO SCH (09:33)
[2016-09-18] MEDS: Pantoprazole 40 MG VIAL IVP SCH (09:33)
[2016-09-18] MEDS: Spironolactone 25 MG TABLET PO SCH (09:33)
[2016-09-18 09:54] LABS: Basophils % 0.1 %; Eosinophils % 0.1 %; Hematocrit 34.3 % (37.5-50.1); Hemoglobin 11.3 g/dL (12.9-16.9); Immature Granulocytes % 0.5 % (0-4); Lymphocytes # 1.9 K/mcL (0.6-4.6); Mean Corpuscular HGB Conc 32.9 g/dL (31.6-35.5); Mean Corpuscular Hemoglobin 31.4 pg (28.0-33.3); Mean Corpuscular Volume 95.3 fL (83.0-100.0); Mean Platelet Volume 9.4 fL (9.4-12.4); Monocytes # 0.9 K/mcL (0.0-1.3); Monocytes % 6.1 %; Neutrophils # 11.6 K/mcL (1.6-8.9); Platelet Count 269 K/mcL (140-400); Red Cell Distribution Width 13.6 % (11.5-14.5); Segmented Neutrophils % 80.2 %
[2016-09-18 10:11] LABS: BUN/Creatinine Ratio 23 (6-26); Blood Urea Nitrogen 27 mg/dL (8-26); Calcium 8.8 mg/dL (8.6-10.8); Carbon Dioxide 22 mEq/L (19-29); Chloride 97 mEq/L (98-109); Glucose 191 mg/dL (70-99); Magnesium 2.1 mg/dL (1.6-2.6); Osmolality,Calculated 282 (280-300); Phosphorous 2.5 mg/dL (2.3-4.7); Potassium 4.3 mEq/L (3.5-4.5); Sodium 131 mEq/L (136-145); eGFR For African Americans > 60 (> 60); eGFR For Non-African Americans > 60 (> 60)
--- NOTE | 2016-09-18 11:21 | Vascular/[facility] Progress Note ---
Date of Encounter: 09/18/16 Time of Encounter: 11:19 - Assessment and plan (1) Hypertension Current Visit: Yes Status: Chronic The patient sees Dr. Fishman for hypertension control. Qualifiers: Hypertension type: essential hypertension Qualified Code(s): I10 - Essential (primary) hypertension (2) Ischemia of right lower extremity Current Visit: Yes Status: Acute Limb threatening ischemia of right lower extremity with thrombosed right popliteal artery aneurysm and suspected thromboembolic events. Patient is now postop day 1 from right AKA. Patient is hemodynamically stable. Blood pressure is under much better control. Pain is adequately controlled with relatively low doses of narcotics. 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 The patient and his family were informed of this grave diagnosis. He was explained that the prognosis is very poor and that limb loss is a distinct possibility. It is imperative to proceed with surgery as soon as possible. Patient is on a heparin drip which will be continued to the operating room. no improvement overnight non viable limb recommend right AKA Patient is postoperative day #1 from right AKA for critical ischemia of right lower extremity. - Subjective Interval history: Patient had an uneventful night. He is only required 2 doses of intravenous narcotics for pain control. He is overall comfortable this morning. He was able to tolerate breakfast. He is sitting up in bed. Vital Signs, Last 4 Hours Temp Pulse Resp BP Pulse Ox 09/18/16 09:00 98.1 F 71 18 120/68 09/18/16 07:25 64 18 125/66 94 - Physical Examination General: Present: Conversant, No Apparent Distress HEENT: Present: Atraumatic Neck: Absent: JVD Cardiac: Present: Reg Rate and Rhythm, Normal S1 and S2 Lungs: Present: Normal Breath Sounds Neuro: Present: Alert and responsive Vascular: Present: Surgical incisions (The right AKA dressing is intact. It was not stirred during my visit today.) Abdomen: Present: Soft, Non-tender - VTE Documentation of Mechanical Device: Intermittent pneumatic compression device Results 09/18/16 09:31 09/18/16 09:31 Lab Results, Last 24 hours 09/17/16 09/18/16 09/18/16 15:15 09:31 09:31 WBC 14.4 H Hgb 11.3 L Hct 34.3 L Plt Count 269 APTT 76.7 H Sodium 131 L Potassium 4.3 Chloride 97 L Carbon Dioxide 22 BUN 27 H Creatinine 1.16 Glucose 191 H Calcium 8.8 Magnesium 2.1 Consult Discharge Plan - Plan Referrals: Yandy Wilson CNP [Primary Care Provider] - 09/26/16 1:15 pm Martin Sidhu MD [Partnered Physician] - 10/08/16 11:45 am
[2016-09-18] MEDS: *HR* GlipiZIDE 5 MG TABLET PO SCH ×3 (12:07→21:34)
[2016-09-18] MEDS: Insulin LISPRO 300 UNITS/3 ML VIAL SQ SCH ×3 (12:09→21:41)
[2016-09-18] MEDS: *HR* Heparin 5,000 UNIT/ML VIAL SQ SCH (15:44)
[2016-09-18] MEDS: ceFAZolin 2,000 MG in D5% in Water 100 ML IVPB SCH (15:45)
--- NOTE | 2016-09-18 16:36 | Internal Med Progress Note ---
Date of Encounter: 09/18/16 Time of Encounter: 16:15 - Assessment and plan (1) Ischemia of right lower extremity Current Visit: Yes Status: Acute Assessment and plan: Vascular consultation appreciated s/p right AKA-POD 1 continue pain control as per surgery (2) Pancreatic mass Current Visit: Yes Status: Acute Assessment and plan: Will obtain MRI abd for further evaluation of pancreatic mass (3) Hypertension Current Visit: Yes Status: Chronic Assessment and plan: BP within acceptable range continue home medications Qualifiers: Hypertension type: essential hypertension Qualified Code(s): I10 - Essential (primary) hypertension (4) Diabetes mellitus, type 2 Current Visit: Yes Status: Acute Assessment and plan: BG within acceptable range will continue SS insulin algorithm continue to monitor FS and BG Qualifiers: Diabetes mellitus complication status: with circulatory complication Diabetes mellitus complication detail: with other circulatory complications 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 Resting in chair. S/P right AKA. Tolerated the procedure well and currently pain controlled with the current regimen. Patient reported to have pancreatic mass for which he will undergo further evaluation, patient in agreement. No overnight issues reported. - Constitutional Vitals: Temp Pulse Resp BP Pulse Ox 98.3 F 66 18 105/70 94 09/18/16 16:10 09/18/16 16:10 09/18/16 16:10 09/18/16 16:10 09/18/16 07:25 General appearance: Present: cooperative, A&O X 3, no acute distress, obese, answers questions appropriately - Head Head exam: Present: atraumatic, normocephalic - Eye Eye exam: Present: normal appearance, conjuntiva pink, sclera anicteric - Respiratory Respiratory exam: Present: CTAB. Absent: accessory muscle use, rales, rhonchi, wheezes - Cardiovascular Cardiovascular exam: Present: RRR, +S1, +S2 - GI/Abdominal GI/Abdominal exam: Present: normal bowel sounds, soft, no peritoneal signs. Absent: distended, tenderness - Extremities Exam Extremities exam: Present: warm, radial pulses palpable and symetrical (s/p right AKA). Absent: pedal edema - Neurological Exam Neurological exam: Present: alert, oriented X3 - Psychiatric Psychiatric exam: Present: normal affect, normal mood Internal Medicine: Result - Labs CBC & Chem 7: 09/18/16 09:31 09/18/16 09:31 Labs: Short CBC 09/18/16 Range/Units 09:31 WBC 14.4 H (4.3-11.1) K/mcL Hgb 11.3 L (12.9-16.9) g/dL Hct 34.3 L (37.5-50.1) % Plt Count 269 (140-400) K/mcL Neutrophils # 11.6 H (1.6-8.9) K/mcL BMP 09/18/16 09:31 Sodium 131 L Potassium 4.3 Chloride 97 L Carbon Dioxide 22 BUN 27 H Creatinine 1.16 Glucose 191 H Calcium 8.8 - ABG Interpretation ABG results: PT/INR, D-dimer PT 12.1 Seconds (9.4-12.1) 09/17/16 05:30 - VTE Documentation of Mechanical Device: Intermittent pneumatic compression device Consult Discharge Plan - Plan Referrals: Yandy Wilson CNP [Primary Care Provider] - 09/26/16 1:15 pm Martin Sidhu MD [Partnered Physician] - 10/08/16 11:45 am
[2016-09-19] MEDS: ceFAZolin 2,000 MG in D5% in Water 100 ML IVPB SCH ×2 (00:25→09:00)
[2016-09-19] MEDS: *HR* Heparin 5,000 UNIT/ML VIAL SQ SCH ×4 (00:26→23:14)
[2016-09-19] MEDS: *HR* HYDROmorphone 2 MG/ML SYRINGE IVP PRN ×5 (04:12→23:14)
[2016-09-19 04:52] LABS: Basophils % 0.2 %; Eosinophils # 0.1 K/mcL (0.0-0.6); Eosinophils % 0.9 %; Hematocrit 28.3 % (37.5-50.1); Immature Granulocytes % 0.4 % (0-4); Lymphocytes # 1.6 K/mcL (0.6-4.6); Lymphocytes % 13.9 %; Mean Corpuscular HGB Conc 33.9 g/dL (31.6-35.5); Mean Corpuscular Hemoglobin 31.6 pg (28.0-33.3); Mean Corpuscular Volume 93.1 fL (83.0-100.0); Mean Platelet Volume 9.2 fL (9.4-12.4); Monocytes # 0.6 K/mcL (0.0-1.3); Monocytes % 5.3 %; Neutrophils # 9.2 K/mcL (1.6-8.9); Platelet Count 222 K/mcL (140-400); Red Blood Count 3.04 M/mcL (4.19-5.50); Red Cell Distribution Width 13.3 % (11.5-14.5); Segmented Neutrophils % 79.3 %
[2016-09-19 05:01] LABS: Hemoglobin 9.6 g/dL (12.9-16.9)
[2016-09-19 05:13] LABS: Calcium 8.1 mg/dL (8.6-10.8); Magnesium 2.3 mg/dL (1.6-2.6); Phosphorous 3.2 mg/dL (2.3-4.7); Potassium 3.7 mEq/L (3.5-4.5)
[2016-09-19] MEDS: Insulin LISPRO 300 UNITS/3 ML VIAL SQ SCH ×4 (05:35→21:17)
[2016-09-19] MEDS: Aspirin 325 MG TABLET PO SCH (07:40)
[2016-09-19] MEDS: hydroCHLOROthiazide 25 MG TABLET PO SCH (07:43)
[2016-09-19] MEDS: FLUoxetine 20 MG CAPSULE PO SCH (07:44)
[2016-09-19] MEDS: *HR* GlipiZIDE 5 MG TABLET PO SCH (07:46)
[2016-09-19] MEDS: Lisinopril 20 MG TABLET PO SCH (07:48)
[2016-09-19] MEDS: amLODIPine 5 MG TABLET PO SCH (07:49)
[2016-09-19] MEDS: Pantoprazole 40 MG VIAL IVP SCH (07:50)
[2016-09-19] MEDS: Spironolactone 25 MG TABLET PO SCH (07:51)
[2016-09-19] MEDS: 0.9 % Sodium Chloride 1,000 ML IVC SCH ×2 (09:09→21:52)
[2016-09-19] MEDS: cloNIDine HCl 0.1 MG TABLET PO SCH ×2 (12:03→21:17)
--- NOTE | 2016-09-19 14:09 | Vascular/Endovas Progress Note ---
Date of Encounter: 09/19/16 Time of Encounter: 14:07 - Assessment and plan (1) Hypertension Current Visit: Yes Status: Chronic The patient sees Dr. Fishman for hypertension control. Qualifiers: Hypertension type: essential hypertension Qualified Code(s): I10 - Essential (primary) hypertension (2) Ischemia of right lower extremity Current Visit: Yes Status: Acute Limb threatening ischemia of right lower extremity with thrombosed right popliteal artery aneurysm and suspected thromboembolic events. Patient is now postop day 2 from right AKA. Patient is hemodynamically stable. Blood pressure is under much better control. Pain is adequately controlled with relatively low doses of narcotics. The initial dressing change was performed today. The AKA site is clean and dry and healing well. There is no signs of ischemia or infection. Daily dressing changes will now be initiated. Patient may be transferred to rehabilitation center whenever cleared from a medical standpoint. He is undergoing evaluation for pancreatic mass. Patient will return to see me in 6 weeks for staple removal and evaluation for prosthetic fitting. 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 The patient and his family were informed of this grave diagnosis. He was explained that the prognosis is very poor and that limb loss is a distinct possibility. It is imperative to proceed with surgery as soon as possible. Patient is on a heparin drip which will be continued to the operating room. no improvement overnight non viable limb recommend right AKA Patient is postoperative day #1 from right AKA for critical ischemia of right lower extremity. Patient is postoperative day #2 from right AKA. Right AKA appears to be healing well. Patient is hemodynamically stable. Patient may be transferred to rehabilitation center from vascular perspective whenever cleared from a medical perspective. - Subjective Interval history: The patient is postoperative day #2 from the right [id number] amputation and postoperative day #3 from the emergency attempt at limb salvage for profound ischemia. The patient had an uneventful night. He states he had slept well. Feels that his pain is under good control. He has been seen by the rehabilitative services and has been up out of bed. Vital Signs, Last 4 Hours Temp Pulse Resp BP Pulse Ox 09/19/16 13:00 69 09/19/16 11:18 97.3 F L 69 20 137/58 92 - Physical Examination General: Present: Conversant, No Apparent Distress HEENT: Present: Atraumatic Neuro: Present: Alert and responsive Vascular: Present: Amputation(s) (The right AKA dressing was removed. The wound was inspected. The incision is clean and dry. The skin flaps are viable. There are no signs of infection.) - VTE Documentation of Mechanical Device: Intermittent pneumatic compression device Results 09/19/16 04:29 09/19/16 04:29 Lab Results, Last 24 hours 09/19/16 09/19/16 04:29 04:29 WBC 11.6 H Hgb 9.6 L D Hct 28.3 L Plt Count 222 Sodium 127 L Potassium 3.7 Chloride 96 L Carbon Dioxide 24 BUN 44 H D Creatinine 1.74 H Glucose 135 H Calcium 8.1 L Magnesium 2.3 Consult Discharge Plan - Plan Referrals: Yandy Wilson CNP [Primary Care Provider] - 09/26/16 1:15 pm Martin Sidhu MD [Partnered Physician] - (Patient is to follow-up with Dr. Sidhu in 6 weeks.)
--- NOTE | 2016-09-19 14:51 | Internal Med Progress Note ---
Date of Encounter: 09/19/16 Time of Encounter: 12:05 - Assessment and plan (1) Acute kidney injury Current Visit: Yes Status: Acute Assessment and plan: Likely drug induced will hold all nephrotoxic agents at this time (Lisinopril, HCTZ, spironolactone , Meloxicam, Glipizide) continue IV fluids closely monitor renal function (2) Ischemia of right lower extremity Current Visit: Yes Status: Acute Assessment and plan: Vascular consultation appreciated s/p right AKA-POD 2 continue pain control as per surgery PT eval: sNF placement pick up worker consultation appreciated (3) Pancreatic mass Current Visit: Yes Status: Acute Assessment and plan: MRI abd/pelvis reported of a multiloculated cystic lesion in the pancreatic body. Surgical consultation requested with Dr. Gary (4) Hypertension Current Visit: Yes Status: Chronic Assessment and plan: Noted to be hypotensive this morning Held morning dose of BB will closely monitor BP and hold antihypertensive medications as needed Qualifiers: Hypertension type: essential hypertension Qualified Code(s): I10 - Essential (primary) hypertension (5) Diabetes mellitus, type 2 Current Visit: Yes Status: Acute Assessment and plan: BG within acceptable range will continue SS insulin algorithm continue to monitor FS and BG Qualifiers: Diabetes mellitus complication status: with circulatory complication Diabetes mellitus complication detail: with other circulatory complications Diabetes mellitus supervisor feed house insulin use: without supervisor feed house use Qualified Code( s): E11.59 - Type 2 diabetes mellitus with other circulatory complications (6) DVT prophylaxis Current Visit: Yes Status: Acute Assessment and plan: Heparin SQ (7) Tobacco abuse Current Visit: Yes Status: Chronic Assessment and plan: smoking cessation counseling provided nicotine supplementation provided - Subjective Interval history: Patient seen and examined at bedside. Resting in chair. S/P right AKA. No complains at this time. - Constitutional Vitals: Temp Pulse Resp BP Pulse Ox 97.3 F L 69 20 137/58 92 09/19/16 11:18 09/19/16 13:00 09/19/16 11:18 09/19/16 11:18 09/19/16 11:18 General appearance: Present: cooperative, A&O X 3, no acute distress, obese, answers questions appropriately - Head Head exam: Present: atraumatic, normocephalic - Eye Eye exam: Present: normal appearance, conjuntiva pink, sclera anicteric - Respiratory Respiratory exam: Present: CTAB. Absent: accessory muscle use, rales, rhonchi, wheezes - Cardiovascular Cardiovascular exam: Present: RRR, +S1, +S2. Absent: diastolic murmur, gallop, rubs, systolic murmur - GI/Abdominal GI/Abdominal exam: Present: normal bowel sounds, soft. Absent: distended, tenderness - Extremities Exam Extremities exam: Present: warm, radial pulses palpable and symetrical (s/p right AKA). Absent: pedal edema - Neurological Exam Neurological exam: Present: alert, oriented X3 - Psychiatric Psychiatric exam: Present: normal affect, normal mood Internal Medicine: Result - Labs CBC & Chem 7: 09/19/16 04:29 09/19/16 04:29 Labs: Short CBC 09/19/16 Range/Units 04:29 WBC 11.6 H (4.3-11.1) K/mcL Hgb 9.6 L D (12.9-16.9) g/dL Hct 28.3 L (37.5-50.1) % Plt Count 222 (140-400) K/mcL Neutrophils # 9.2 H (1.6-8.9) K/mcL BMP 09/19/16 04:29 Sodium 127 L Potassium 3.7 Chloride 96 L Carbon Dioxide 24 BUN 44 H D Creatinine 1.74 H Glucose 135 H Calcium 8.1 L - ABG Interpretation ABG results: PT/INR, D-dimer PT 12.1 Seconds (9.4-12.1) 09/17/16 05:30 - Impressions Impressions Abdomen MRI 09/19/16 09:05 IMPRESSION: 1. Multiloculated cystic lesion in the pancreatic body measuring 4.7 x 2.3 x 2.3 cm. No definite suspicious features identified, however, evaluation is limited by significant respiratory motion. Differential considerations favor serous cystadenoma versus side-branch IPMN. Given the size of the mass, surgical resection can be considered versus cyst aspiration. 2. RECOMMENDATIONS: ACR management recommendations for incidental cystic pancreatic masses in asymptomatic* patients on CT, MR, or US > 3 cm *Serous cystadenoma: Consider resection when ? 4 cm *Uncharacterized cystic mass or other cystic neoplasm: Cyst aspiration * None of the following: Hyperamylasemia, recent onset diabetes, severe epigastric pain, weight loss, steatorrhea, or jaundice. Lia CISNEROS, et al. Managing incidental findings on abdominal CT: white paper of the ACR Incidental Findings Committee. J Am Sarthak Radiol 2010; 7:[id number]. D/ / 09/19/2016 11:53:48 Jaye Graff MD / [email or web address] Interpreting Provider: Jaye Graff MD - VTE Documentation of Mechanical Device: Intermittent pneumatic compression device Consult Discharge Plan - Plan Referrals: Yandy Wilson CNP [Primary Care Provider] - 09/26/16 1:15 pm Martin Sidhu MD [Partnered Physician] - 10/29/16 11:45 am (Patient is to follow-up with Dr. Sidhu in 6 weeks.)
[2016-09-19] MEDS: Nicotine 21 MG PATCH.TD24 TD PRN (16:12)
[2016-09-19] MEDS: *HR* OxyCODONE/APAP 7.5/325 TABLET PO PRN (18:40)
[2016-09-20] MEDS: *HR* OxyCODONE/APAP 7.5/325 TABLET PO PRN ×3 (03:07→16:22)
[2016-09-20 03:48] LABS: Basophils % 0.3 %; Eosinophils # 0.2 K/mcL (0.0-0.6); Eosinophils % 1.8 %; Hematocrit 27.9 % (37.5-50.1); Hemoglobin 9.5 g/dL (12.9-16.9); Immature Granulocytes % 0.5 % (0-4); Lymphocytes # 1.6 K/mcL (0.6-4.6); Lymphocytes % 13.8 %; Mean Corpuscular HGB Conc 34.1 g/dL (31.6-35.5); Mean Corpuscular Hemoglobin 31.6 pg (28.0-33.3); Mean Corpuscular Volume 92.7 fL (83.0-100.0); Mean Platelet Volume 9.4 fL (9.4-12.4); Monocytes # 0.6 K/mcL (0.0-1.3); Monocytes % 5.1 %; Neutrophils # 8.9 K/mcL (1.6-8.9); Platelet Count 272 K/mcL (140-400); Red Blood Count 3.01 M/mcL (4.19-5.50); Red Cell Distribution Width 13.1 % (11.5-14.5); Segmented Neutrophils % 78.5 %
[2016-09-20 04:06] LABS: BUN/Creatinine Ratio 31 (6-26); Blood Urea Nitrogen 36 mg/dL (8-26); Calcium 8.5 mg/dL (8.6-10.8); Carbon Dioxide 22 mEq/L (19-29); Chloride 98 mEq/L (98-109); Glucose 125 mg/dL (70-99); Magnesium 2.2 mg/dL (1.6-2.6); Osmolality,Calculated 282 (280-300); Phosphorous 2.2 mg/dL (2.3-4.7); Sodium 131 mEq/L (136-145); eGFR For African Americans > 60 (> 60); eGFR For Non-African Americans > 60 (> 60)
[2016-09-20] MEDS: FLUoxetine 20 MG CAPSULE PO SCH (08:18)
[2016-09-20] MEDS: Insulin LISPRO 300 UNITS/3 ML VIAL SQ SCH ×4 (08:18→21:09)
[2016-09-20] MEDS: Nicotine 21 MG PATCH.TD24 TD PRN (08:18)
[2016-09-20] MEDS: Pantoprazole 40 MG VIAL IVP SCH (08:18)
[2016-09-20] MEDS: *HR* Heparin 5,000 UNIT/ML VIAL SQ SCH ×2 (08:19→16:29)
[2016-09-20] MEDS: Aspirin 325 MG TABLET PO SCH (08:20)
[2016-09-20] MEDS: amLODIPine 5 MG TABLET PO SCH (08:20)
[2016-09-20] MEDS: cloNIDine HCl 0.1 MG TABLET PO SCH ×2 (08:21→21:08)
[2016-09-20] MEDS: 0.9 % Sodium Chloride 1,000 ML IVC SCH (08:22)
[2016-09-20] MEDS ORDERED: Sodium Phosphate 30 MMOL in D5% in Water 100 ML IVPB ONE (09:37)
--- NOTE | 2016-09-20 12:18 | Vascular/Endovas Progress Note ---
Date of Encounter: 09/20/16 Time of Encounter: 12:16 - Assessment and plan (1) Hypertension Current Visit: Yes Status: Chronic The patient sees Dr. Fishman for hypertension control. Qualifiers: Hypertension type: essential hypertension Qualified Code(s): I10 - Essential (primary) hypertension (2) Ischemia of right lower extremity Current Visit: Yes Status: Acute Limb threatening ischemia of right lower extremity with thrombosed right popliteal artery aneurysm and suspected thromboembolic events. Patient is now postop day 3 from right AKA. Patient is hemodynamically stable. Blood pressure is under much better control. Pain is adequately controlled with relatively low doses of narcotics. Daily dressing changes. Patient may be transferred to rehabilitation center whenever cleared from a medical standpoint. He is undergoing evaluation for pancreatic mass. Patient will return to see me in 6 weeks for staple removal and evaluation for prosthetic fitting. 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 The patient and his family were informed of this grave diagnosis. He was explained that the prognosis is very poor and that limb loss is a distinct possibility. It is imperative to proceed with surgery as soon as possible. Patient is on a heparin drip which will be continued to the operating room. no improvement overnight non viable limb recommend right AKA Patient is postoperative day #4 from right AKA for critical ischemia of right lower extremity. Patient is postoperative day #3 from right AKA. Right AKA appears to be healing well. Patient is hemodynamically stable. Patient may be transferred to rehabilitation center from vascular perspective whenever cleared from a medical perspective. - Subjective Interval history: The patient is postoperative day #3 from the right [id number] amputation and postoperative day #4 from the emergency attempt at limb salvage for profound ischemia. The patient had an uneventful night. He states he had slept well. Feels that his pain is under good control. He has been seen by the rehabilitative services and has been up out of bed. The patient has walked to the restroom today using a walker and with assistance. The patient has no complaints. The right AKA dressing changes has been performed by the nursing staff earlier today. - Physical Examination General: Present: Conversant, No Apparent Distress Neck: Absent: JVD Cardiac: Present: Reg Rate and Rhythm Vascular: Present: Amputation(s) (Right AKA amputation dressing is intact and dry.) - VTE Documentation of Mechanical Device: Intermittent pneumatic compression device Results 09/20/16 03:22 09/20/16 03:22 Lab Results, Last 24 hours 09/20/16 09/20/16 03:22 03:22 WBC 11.3 H Hgb 9.5 L Hct 27.9 L Plt Count 272 Sodium 131 L Potassium 4.0 Chloride 98 Carbon Dioxide 22 BUN 36 H Creatinine 1.15 Glucose 125 H Calcium 8.5 L Magnesium 2.2 Consult Discharge Plan - Plan Referrals: Yandy Wilson CNP [Primary Care Provider] - 09/26/16 1:15 pm Martin Sidhu MD [Partnered Physician] - 10/29/16 11:45 am (Patient is to follow-up with Dr. Sdihu in 6 weeks.)
--- NOTE | 2016-09-20 12:27 | Event Note ---
Date of Encounter: 09/20/16 Time of Encounter: 12:25 Patient was seen and discussed labs and imaging, MRI, with patient and family. I feel his pancreatic lesion likely does need resected but there is nothing emergently that needs done as inpatient. Will have him follow-up with Dr Mayen as outpatient. Discussed with patient and family. He needs to heal from his right AKA.
[2016-09-20] MEDS: *HR* HYDROmorphone 2 MG/ML SYRINGE IVP PRN ×2 (13:22→18:38)
--- NOTE | 2016-09-20 14:57 | Internal Med Progress Note ---
Date of Encounter: 09/20/16 Time of Encounter: 14:55 - Assessment and plan (1) Acute kidney injury Current Visit: Yes Status: Acute Assessment and plan: Likely drug induced Resolved Discontinue IV fluids Will continue to hold these agents given BP readings. (Lisinopril, HCTZ, spironolactone, Meloxicam) closely monitor renal function (2) Ischemia of right lower extremity Current Visit: Yes Status: Acute Assessment and plan: Vascular consultation appreciated s/p right AKA-POD 3 continue pain control as per surgery PT eval: sNF placement tar pot worker consultation appreciated Discharge pending SNF placement (3) Pancreatic mass Current Visit: Yes Status: Acute Assessment and plan: MRI abd/pelvis reported of a multiloculated cystic lesion in the pancreatic body. Surgical consultation noted-further work up as outpatient (4) Hypertension Current Visit: Yes Status: Chronic Assessment and plan: Noted to be hypotensive this morning Held morning dose of BB hold antihypertensive medications as needed Repeat BP within acceptable range will continue to closely monitor Qualifiers: Hypertension type: essential hypertension Qualified Code(s): I10 - Essential (primary) hypertension (5) Diabetes mellitus, type 2 Current Visit: Yes Status: Acute Assessment and plan: BG within acceptable range will continue SS insulin algorithm continue to monitor FS and BG Qualifiers: Diabetes mellitus complication status: with circulatory complication Diabetes mellitus complication detail: with other circulatory complications Diabetes mellitus bed bug exterminator insulin use: without bed bug exterminator use Qualified Code( s): E11.59 - Type 2 diabetes mellitus with other circulatory complications (6) DVT prophylaxis Current Visit: Yes Status: Acute Assessment and plan: Heparin SQ (7) Tobacco abuse Current Visit: Yes Status: Chronic Assessment and plan: smoking cessation counseling provided nicotine supplementation provided (8) Electrolyte abnormality Current Visit: Yes Status: Acute Assessment and plan: Hypophosphatemia Phos supplemented continue to monitor electrolytes and replace as needed - Subjective Interval history: Patient seen and examined at bedside. Resting in chair. S/P right AKA. No complains at this time. Discharge pending ECF placement. - Constitutional Vitals: Temp Pulse Resp BP Pulse Ox 98.6 F 79 18 81/53 95 09/20/16 12:30 09/20/16 12:30 09/20/16 12:30 09/20/16 08:10 09/20/16 12:30 General appearance: Present: cooperative, A&O X 3, no acute distress, obese, answers questions appropriately - Head Head exam: Present: atraumatic, normocephalic - Eye Eye exam: Present: conjuntiva pink, sclera anicteric - Respiratory Respiratory exam: Present: CTAB. Absent: accessory muscle use, rales, rhonchi, wheezes - Cardiovascular Cardiovascular exam: Present: RRR, +S1, +S2. Absent: diastolic murmur, gallop, rubs, systolic murmur - GI/Abdominal GI/Abdominal exam: Present: normal bowel sounds, soft, no peritoneal signs. Absent: distended, tenderness - Extremities Exam Extremities exam: Present: warm, radial pulses palpable and symetrical. Absent : pedal edema Additional comments: Status post right AKA - Neurological Exam Neurological exam: Present: alert, oriented X3 - Psychiatric Psychiatric exam: Present: normal affect, normal mood Internal Medicine: Result - Labs CBC & Chem 7: 09/20/16 03:22 09/20/16 03:22 Labs: Short CBC 09/20/16 Range/Units 03:22 WBC 11.3 H (4.3-11.1) K/mcL Hgb 9.5 L (12.9-16.9) g/dL Hct 27.9 L (37.5-50.1) % Plt Count 272 (140-400) K/mcL Neutrophils # 8.9 (1.6-8.9) K/mcL BMP 09/20/16 03:22 Sodium 131 L Potassium 4.0 Chloride 98 Carbon Dioxide 22 BUN 36 H Creatinine 1.15 Glucose 125 H Calcium 8.5 L - ABG Interpretation ABG results: PT/INR, D-dimer PT 12.1 Seconds (9.4-12.1) 09/17/16 05:30 - Impressions Impressions Abdomen MRI 09/19/16 09:05 IMPRESSION: 1. Multiloculated cystic lesion in the pancreatic body measuring 4.7 x 2.3 x 2.3 cm. No definite suspicious features identified, however, evaluation is limited by significant respiratory motion. Differential considerations favor serous cystadenoma versus side-branch IPMN. Given the size of the mass, surgical resection can be considered versus cyst aspiration. 2. RECOMMENDATIONS: ACR management recommendations for incidental cystic pancreatic masses in asymptomatic* patients on CT, MR, or US > 3 cm *Serous cystadenoma: Consider resection when ? 4 cm *Uncharacterized cystic mass or other cystic neoplasm: Cyst aspiration * None of the following: Hyperamylasemia, recent onset diabetes, severe epigastric pain, weight loss, steatorrhea, or jaundice. Lia CISNEROS, et al. Managing incidental findings on abdominal CT: white paper of the ACR Incidental Findings Committee. J Am Sarthak Radiol 2010; 7:[id number]. D/ / 09/19/2016 11:53:48 Jaye Graff MD / [email or web address] Interpreting Provider: Jaye Graff MD - VTE Documentation of Mechanical Device: Intermittent pneumatic compression device Consult Discharge Plan - Plan Referrals: Yandy Wilson CNP [Primary Care Provider] - 09/26/16 1:15 pm Martin Sidhu MD [Partnered Physician] - 10/29/16 11:45 am (Patient is to follow-up with Dr. Sidhu in 6 weeks.)
[2016-09-20] MEDS: Sennosides/Docusate Sodium TABLET PO SCH (21:09)
[2016-09-21] MEDS: *HR* Heparin 5,000 UNIT/ML VIAL SQ SCH ×3 (00:07→17:02)
[2016-09-21] MEDS: *HR* OxyCODONE/APAP 7.5/325 TABLET PO PRN ×4 (01:35→19:31)
[2016-09-21 04:49] LABS: Basophils % 0.2 %; Eosinophils # 0.2 K/mcL (0.0-0.6); Eosinophils % 1.8 %; Hematocrit 25.8 % (37.5-50.1); Hemoglobin 8.6 g/dL (12.9-16.9); Immature Granulocytes % 0.8 % (0-4); Lymphocytes # 1.5 K/mcL (0.6-4.6); Lymphocytes % 16.3 %; Mean Corpuscular HGB Conc 33.3 g/dL (31.6-35.5); Mean Corpuscular Hemoglobin 31.4 pg (28.0-33.3); Mean Corpuscular Volume 94.2 fL (83.0-100.0); Mean Platelet Volume 9.8 fL (9.4-12.4); Monocytes # 0.5 K/mcL (0.0-1.3); Monocytes % 5.8 %; Neutrophils # 6.7 K/mcL (1.6-8.9); Platelet Count 308 K/mcL (140-400); Red Blood Count 2.74 M/mcL (4.19-5.50); Red Cell Distribution Width 13.2 % (11.5-14.5); Segmented Neutrophils % 75.1 %
[2016-09-21 05:05] LABS: BUN/Creatinine Ratio 26 (6-26); Calcium 8.7 mg/dL (8.6-10.8); Carbon Dioxide 26 mEq/L (19-29); Chloride 99 mEq/L (98-109); Glucose 141 mg/dL (70-99); Magnesium 1.7 mg/dL (1.6-2.6); Osmolality,Calculated 282 (280-300); Potassium 4.1 mEq/L (3.5-4.5); Sodium 133 mEq/L (136-145); eGFR For African Americans > 60 (> 60); eGFR For Non-African Americans > 60 (> 60)
[2016-09-21 05:07] LABS: Blood Urea Nitrogen 24 mg/dL (8-26)
[2016-09-21] MEDS ORDERED: Sodium Phosphate 30 MMOL in D5% in Water 100 ML IVPB ONE (07:58)
[2016-09-21] MEDS: Insulin LISPRO 300 UNITS/3 ML VIAL SQ SCH ×4 (08:48→20:57)
[2016-09-21] MEDS: Pantoprazole 40 MG VIAL IVP SCH (08:49)
[2016-09-21] MEDS: Aspirin 325 MG TABLET PO SCH (08:50)
[2016-09-21] MEDS: amLODIPine 5 MG TABLET PO SCH (08:50)
[2016-09-21] MEDS: FLUoxetine 20 MG CAPSULE PO SCH (08:50)
[2016-09-21] MEDS: Sennosides/Docusate Sodium TABLET PO SCH ×2 (08:50→20:56)
[2016-09-21] MEDS: cloNIDine HCl 0.1 MG TABLET PO SCH ×2 (08:58→20:57)
--- NOTE | 2016-09-21 13:03 | Internal Med Progress Note ---
Date of Encounter: 09/21/16 Time of Encounter: 12:15 - Assessment and plan (1) Acute kidney injury Current Visit: Yes Status: Acute Assessment and plan: Likely drug induced Resolved Will continue to hold these agents given BP readings. (Lisinopril, HCTZ, spironolactone, Meloxicam) closely monitor renal function (2) Ischemia of right lower extremity Current Visit: Yes Status: Acute Assessment and plan: Vascular consultation appreciated s/p right AKA-POD 4 continue pain control as per surgery PT eval: sNF placement terrazzo worker consultation appreciated Discharge pending SNF placement (3) Pancreatic mass Current Visit: Yes Status: Acute Assessment and plan: MRI abd/pelvis reported of a multiloculated cystic lesion in the pancreatic body. Surgical consultation noted-further work up as outpatient (4) Hypertension Current Visit: Yes Status: Chronic Assessment and plan: Noted to be hypotensive this morning Held morning dose of BB hold antihypertensive medications as needed Decreased Clonidine to 0.1mg PO BID, Amlodipine to 5mg PO qd, and Labetalol to 200mg BID Repeat BP within acceptable range will continue to closely monitor Qualifiers: Hypertension type: essential hypertension Qualified Code(s): I10 - Essential (primary) hypertension (5) Diabetes mellitus, type 2 Current Visit: Yes Status: Acute Assessment and plan: BG within acceptable range will continue SS insulin algorithm continue to monitor FS and BG Qualifiers: Diabetes mellitus complication status: with circulatory complication Diabetes mellitus complication detail: with other circulatory complications Diabetes mellitus fci insulin use: without rat exterminator use Qualified Code( s): E11.59 - Type 2 diabetes mellitus with other circulatory complications (6) DVT prophylaxis Current Visit: Yes Status: Acute Assessment and plan: Heparin SQ (7) Tobacco abuse Current Visit: Yes Status: Chronic Assessment and plan: smoking cessation counseling provided nicotine supplementation provided (8) Electrolyte abnormality Current Visit: Yes Status: Acute Assessment and plan: Hypophosphatemia Phos supplemented continue to monitor electrolytes and replace as needed - Subjective Interval history: Patient seen and examined at bedside. Resting in chair. S/P right AKA. No complains at this time. Discharge pending ECF placement. Noted to be hypotensive, home medications readjusted. - Constitutional Vitals: Temp Pulse Resp BP Pulse Ox 98.4 F 76 18 114/76 93 09/21/16 11:47 09/21/16 11:47 09/21/16 11:47 09/21/16 11:47 09/21/16 11:47 General appearance: Present: cooperative, A&O X 3, no acute distress, obese, answers questions appropriately - Head Head exam: Present: atraumatic, normocephalic - Eye Eye exam: Present: conjuntiva pink, sclera anicteric - Respiratory Respiratory exam: Present: CTAB. Absent: accessory muscle use, rales, rhonchi, wheezes - Cardiovascular Cardiovascular exam: Present: RRR, +S1, +S2. Absent: diastolic murmur, gallop, rubs, systolic murmur - GI/Abdominal GI/Abdominal exam: Present: normal bowel sounds, soft, no peritoneal signs. Absent: distended, tenderness - Extremities Exam Extremities exam: Present: warm, radial pulses palpable and symetrical. Absent : calf tenderness, pedal edema, tenderness Additional comments: s/p right AKA - Neurological Exam Neurological exam: Present: alert, oriented X3 - Psychiatric Psychiatric exam: Present: normal affect, normal mood Internal Medicine: Result - Labs CBC & Chem 7: 09/21/16 03:51 09/21/16 03:51 Labs: Short CBC 09/21/16 Range/Units 03:51 WBC 8.9 (4.3-11.1) K/mcL Hgb 8.6 L (12.9-16.9) g/dL Hct 25.8 L (37.5-50.1) % Plt Count 308 (140-400) K/mcL Neutrophils # 6.7 (1.6-8.9) K/mcL BMP 09/21/16 03:51 Sodium 133 L Potassium 4.1 Chloride 99 Carbon Dioxide 26 BUN 24 D Creatinine 0.93 Glucose 141 H Calcium 8.7 - ABG Interpretation ABG results: PT/INR, D-dimer PT 12.1 Seconds (9.4-12.1) 09/17/16 05:30 - VTE Documentation of Mechanical Device: Intermittent pneumatic compression device Consult Discharge Plan - Plan Referrals: Yandy Wilson CNP [Primary Care Provider] - 09/26/16 1:15 pm Martin Sidhu MD [Partnered Physician] - 10/29/16 11:45 am (Patient is to follow-up with Dr. Sidhu in 6 weeks.)
[2016-09-21] MEDS: Nicotine 21 MG PATCH.TD24 TD PRN (17:02)
[2016-09-22] MEDS: *HR* Heparin 5,000 UNIT/ML VIAL SQ SCH ×2 (00:14→08:00)
[2016-09-22 04:28] LABS: Basophils % 0.4 %; Eosinophils # 0.2 K/mcL (0.0-0.6); Eosinophils % 2.8 %; Hematocrit 24.9 % (37.5-50.1); Hemoglobin 8.3 g/dL (12.9-16.9); Immature Granulocytes % 0.5 % (0-4); Lymphocytes # 1.4 K/mcL (0.6-4.6); Lymphocytes % 17.8 %; Mean Corpuscular HGB Conc 33.3 g/dL (31.6-35.5); Mean Corpuscular Hemoglobin 31.2 pg (28.0-33.3); Mean Corpuscular Volume 93.6 fL (83.0-100.0); Monocytes # 0.6 K/mcL (0.0-1.3); Monocytes % 7.4 %; Neutrophils # 5.6 K/mcL (1.6-8.9); Platelet Count 333 K/mcL (140-400); Red Blood Count 2.66 M/mcL (4.19-5.50); Red Cell Distribution Width 13.2 % (11.5-14.5); Segmented Neutrophils % 71.1 %
[2016-09-22 04:39] LABS: BUN/Creatinine Ratio 33 (6-26); Blood Urea Nitrogen 30 mg/dL (8-26); Calcium 8.7 mg/dL (8.6-10.8); Carbon Dioxide 21 mEq/L (19-29); Chloride 99 mEq/L (98-109); Glucose 156 mg/dL (70-99); Magnesium 1.5 mg/dL (1.6-2.6); Osmolality,Calculated 283 (280-300); Phosphorous 2.5 mg/dL (2.3-4.7); Potassium 3.8 mEq/L (3.5-4.5); Sodium 132 mEq/L (136-145); eGFR For African Americans > 60 (> 60); eGFR For Non-African Americans > 60 (> 60)
[2016-09-22] MEDS: *HR* OxyCODONE/APAP 7.5/325 TABLET PO PRN ×2 (05:04→14:38)
[2016-09-22] MEDS ORDERED: Magnesium Sulfate 1 GM in D5% in Water 100 ML IVPB ONE (07:58)
[2016-09-22] MEDS: Insulin LISPRO 300 UNITS/3 ML VIAL SQ SCH ×2 (07:59→12:16)
[2016-09-22] MEDS: Sennosides/Docusate Sodium TABLET PO SCH (08:00)
[2016-09-22] MEDS: Aspirin 325 MG TABLET PO SCH (08:00)
[2016-09-22] MEDS: FLUoxetine 20 MG CAPSULE PO SCH (08:00)
[2016-09-22] MEDS: Pantoprazole 40 MG VIAL IVP SCH (08:00)
[2016-09-22] MEDS: Nicotine 21 MG PATCH.TD24 TD PRN (08:00)
[2016-09-22] MEDS: cloNIDine HCl 0.1 MG TABLET PO SCH (08:05)
[2016-09-22] MEDS ORDERED: amLODIPine 5 MG TABLET PO SCH (09:00)
--- NOTE | 2016-09-22 13:37 | Discharge Summary ---
Date of Encounter: 09/22/16 Time of Encounter: 13:29 - Discharge Diagnosis (1) Acute kidney injury Priority: Secondary Status: Resolved (2) Ischemia of right lower extremity Priority: Primary Status: Acute (3) Pancreatic mass Priority: Secondary Status: Chronic (4) Hypertension Priority: Secondary Status: Chronic Qualifiers: Hypertension type: essential hypertension Qualified Code(s): I10 - Essential (primary) hypertension (5) Diabetes mellitus, type 2 Priority: Secondary Status: Chronic Qualifiers: Diabetes mellitus complication status: with circulatory complication Diabetes mellitus complication detail: with other circulatory complications Diabetes mellitus emt intermediate insulin use: without emt intermediate use Qualified Code( s): E11.59 - Type 2 diabetes mellitus with other circulatory complications (6) DVT prophylaxis Priority: Secondary Status: Acute (7) Tobacco abuse Priority: Secondary Status: Chronic (8) Electrolyte abnormality Priority: Secondary Status: Acute - Discharge Medications Prescriptions: OxyCODONE/APAP 7.5/325 [Percocet 7.5/325 MG] 1 each PO Q6HR PRN #20 tablet PRN Reason: Moderate Pain Home Medications: FLUoxetine HCl [Fluoxetine HCl] 40 mg PO QAM 09/15/16 [History] Hydrochlorothiazide 50 mg PO DAILY 09/15/16 [History] Lisinopril [Zestril] 20 mg PO DAILY 09/15/16 [History] Prazosin HCl [Minipress] 5 mg PO HS 09/15/16 [History] GlipiZIDE [Glipizide] 10 mg PO BID 09/16/16 [History] Metformin HCl [Glucophage] 1,000 mg PO BID 09/16/16 [History] Spironolactone [Aldactone] 50 mg PO DAILY 09/16/16 [History] Amlodipine [Norvasc] 5 mg PO DAILY tablet 09/22/16 [Rx] CloNIDine HCl 0.1 mg PO BID tablet 09/22/16 [Rx] Labetalol [Trandate] 200 mg PO BID tablet 09/22/16 [Rx] OxyCODONE/APAP 7.5/325 [Percocet 7.5/325 MG] 1 each PO Q6HR PRN #20 tablet 09/22 [Rx] Sennosides/Docusate Sodium [Senna Plus] 2 each PO BID tablet 09/22/16 [Rx] Simvastatin [Zocor] 80 mg PO HS tablet 09/22/16 [Rx] Allergies/Adverse Reactions: Allergies meperidine [From Demerol] Allergy (Verified 09/16/16 07:30) Confusion promethazine [From Phenergan] Allergy (Verified 09/16/16 07:30) Confusion Date of admission: 09/16/16 16:17 Primary care physician: Yandy Wilson CNP Consults: 09/18/16 11:23 Consult to Physical Therapy [CONS] Routine Comment: Evaluate, develop and implement POC/ s/p AKA Consult to Interface Engineer [CONS] Routine Reason for SW Consult: Rehabilitation placement upon discharge 09/18/16 11:24 Consult to Occupational Therapy [CONS] Routine Comment: Evaluate, develop and implement POC 09/19/16 14:43 Consult to Surgery [CONS] Routine Consulting Provider: Ilan Malloy Surgical Reason for Consult: pancreatic mass Call Completed: Yes Discharging clinician: Telma Smith Anticipated date of discharge: 09/22/16 - Patient Status Disposition: Transfer SNF Condition: Good Functional capacity at discharge: uses cane/walker Overall status at discharge: patient is progressing back to baseline - Discharge Instructions Follow Up With: Yandy Wilson CNP [Primary Care Provider] - (patient is going to [facility].) Martin Sidhu MD [Partnered Physician] - 10/29/16 11:45 am (Patient is to follow-up with Dr. Sidhu in 6 weeks.) Additional Instructions: Please follow-up with your primary care physician within one week after discharge from the hospital. Please follow up with vascular surgery within 6 weeks after discharge from the hospital Please follow-up with general surgery within 2-3 weeks after discharge from the hospital Your home blood pressure medications have been readjusted. Your home dose of labetalol has been decreased to 200 mg twice a day. Your home dose of amlodipine has been decreased to 5 mg once a day Your home dose of clonidine has been decreased to 0.1 mg twice a day Please closely monitor your blood pressure, and hold blood pressure medications if you have systolic blood pressure lower than 120 Please resume all your other home medications as prescribed by her primary care physician. - Diet and Activity Activity: as per physical therapy Diet: diabetic diet, low salt diet Hospital course: Mr. Gonsalves is a 65 year old male with past medical history of hypertension, hyperlipidemia, tobacco abuse, diabetes mellitus, obesity who was admitted for management of severe right lower extremity pain secondary to right limb ischemia. Patient was evaluated by vascular surgery and underwent right AKA. Patient tolerated the surgery well and has had uncomplicated postop course. He also had an incidental finding of a pancreatic mass on initial imaging studies for which he underwent an MRI. MRI was consistent with a cystic mass on the body of pancreas not concerning for malignancy but will require surgical resection. Patient was seen by surgery consultation and outpatient management was recommended. Patient was also noted to have recurrent episodes of hypotension due to which his home medications were readjusted. Patient was seen by physical therapy and rehabilitation was recommended. At this time patient is hemodynamically stable and will be discharged to rehabilitation with follow-up with vascular surgery, general surgery, and primary care physician. Patient demonstrates understanding of his diagnosis and agrees with the discharge care plan. - Time Spent with Patient Total time spent providing and/or coordinating discharge services: Greater than 30 minutes - Constitutional Vitals: Temp Pulse Resp BP Pulse Ox 98.4 F 94 18 137/71 98 09/22/16 11:26 09/22/16 12:19 09/22/16 11:26 09/22/16 11:26 09/22/16 11:26 General appearance: Present: cooperative, A&O X 3, no acute distress, obese, answers questions appropriately - Head Head exam: Present: atraumatic, normocephalic - Eye Eye exam: Present: normal appearance, conjuntiva pink, sclera anicteric - Respiratory Respiratory exam: Present: CTAB. Absent: accessory muscle use, rales, rhonchi, wheezes - Cardiovascular Cardiovascular exam: Present: RRR, +S1, +S2. Absent: diastolic murmur, gallop, rubs, systolic murmur - GI/Abdominal GI/Abdominal exam: Present: normal bowel sounds, soft, no peritoneal signs. Absent: distended, tenderness - Extremities Exam Extremities exam: Present: warm, radial pulses palpable and symetrical. Absent : calf tenderness, cyanotic, pedal edema Additional comments: right AKA - Neurological Exam Neurological exam: Present: alert, oriented X3 - Psychiatric Psychiatric exam: Present: normal affect, normal mood - VTE Documentation of Mechanical Device: Intermittent pneumatic compression device
--- NOTE | 2016-09-22 13:45 | Physician Discharge Referral ---
ExtendedCare Referral Info Transfer To: ECF Provider in Charge after Transfer: PCP - Diagnosis (1) Acute kidney injury Priority: Secondary Status: Resolved (2) Ischemia of right lower extremity Priority: Primary Status: Acute (3) Pancreatic mass Priority: Secondary Status: Chronic (4) Hypertension Priority: Secondary Status: Chronic (5) Diabetes mellitus, type 2 Priority: Secondary Status: Chronic (6) DVT prophylaxis Priority: Secondary Status: Acute (7) Tobacco abuse Priority: Secondary Status: Chronic (8) Electrolyte abnormality Priority: Secondary Status: Acute - Transfer Medications Prescriptions: OxyCODONE/APAP 7.5/325 [Percocet 7.5/325 MG] 1 each PO Q6HR PRN #20 tablet PRN Reason: Moderate Pain Home Medications: FLUoxetine HCl [Fluoxetine HCl] 40 mg PO QAM 09/15/16 [History] Hydrochlorothiazide 50 mg PO DAILY 09/15/16 [History] Lisinopril [Zestril] 20 mg PO DAILY 09/15/16 [History] Prazosin HCl [Minipress] 5 mg PO HS 09/15/16 [History] GlipiZIDE [Glipizide] 10 mg PO BID 09/16/16 [History] Metformin HCl [Glucophage] 1,000 mg PO BID 09/16/16 [History] Spironolactone [Aldactone] 50 mg PO DAILY 09/16/16 [History] Amlodipine [Norvasc] 5 mg PO DAILY tablet 09/22/16 [Rx] CloNIDine HCl 0.1 mg PO BID tablet 09/22/16 [Rx] Labetalol [Trandate] 200 mg PO BID tablet 09/22/16 [Rx] OxyCODONE/APAP 7.5/325 [Percocet 7.5/325 MG] 1 each PO Q6HR PRN #20 tablet 09/22 [Rx] Sennosides/Docusate Sodium [Senna Plus] 2 each PO BID tablet 09/22/16 [Rx] Simvastatin [Zocor] 80 mg PO HS tablet 09/22/16 [Rx] Allergies/Adverse Reactions: Allergies meperidine [From Demerol] Allergy (Verified 09/16/16 07:30) Confusion promethazine [From Phenergan] Allergy (Verified 09/16/16 07:30) Confusion - Respiratory Orders Smoking Cessation: Smoking cessation has been advised. For more information, call the [place] Tobacco Quit Line at 1-081-CXRK-NOW. - Treatments List/Other: Please follow-up with your primary care physician within one week after discharge from the hospital. Please follow up with vascular surgery within 6 weeks after discharge from the hospital Please follow-up with general surgery within 2-3 weeks after discharge from the hospital Your home blood pressure medications have been readjusted. Your home dose of labetalol has been decreased to 200 mg twice a day. Your home dose of amlodipine has been decreased to 5 mg once a day Your home dose of clonidine has been decreased to 0.1 mg twice a day Please closely monitor your blood pressure, and hold blood pressure medications if you have systolic blood pressure lower than 120 Please resume all your other home medications as prescribed by her primary care physician. CERTIFICATION: I certify that the transfer of the above named patient to an Extended Care Facility is necessary for the continuing treatment of the diagnosis listed. The above information is true and accurate reflection of patient's current condition. Confidential - Redisclosure prohibited without a patient's written consent.
[2016-09-23 10:29] VITALS: BP 137/71
== END 2016-09-22 16:05 | disposition other institution (70) | DRG 271 ==
LOC: 2NNU 07:21 → EMEROO 07:21 → 2NNU 14:34 → SUATTDRO 16:17
PROVIDERS: ADMIT Internal Medicine; ATTEND Internal Medicine